=== PATIENT | female | born 1995 | race Caucasian/White ===

== ENCOUNTER → 2017-03-05 | Outpatient (CLI) | payer BC ==
--- NOTE | 2017-03-05 12:37 | US ---
EXAMINATION: Transvaginal pelvic ultrasound HISTORY: Frequent menstruation COMPARISON: None TECHNIQUE: Grayscale, color Doppler, and spectral Doppler images obtained transvaginally. FINDINGS: The uterus is normal in size, contour, and echogenicity without a focal uterine mass. Ther e is an IUD noted within the endometrial stripe. In the endometrial stripe thickness is otherwise 3 mm. Both the left and right ovaries are normal in size, contour, and echogenicity containing multiple sm all follicles. No adnexal masses. Trace physiologic free fluid. IMPRESSION: 1. IUD within an otherwise unremarkable uterus.
== END ==
LOC: MW.US 09:08
PROVIDERS: ATTEND Nurse Practitioner Women's Health
DX: N92.1 Excessive and frequent menstruation with irregular cycle (principal); Z97.5 Presence of (intrauterine) contraceptive device
CPT/HCPCS: 76830; 76830-26

== ENCOUNTER → 2017-03-08 | Outpatient (CLI) | payer BC | LOC: MW.CHOBGYN 08:14 | PROVIDERS: ATTEND Nurse Practitioner Women's Health | DX: R39.9 Unspecified symptoms and signs involving the genitourinary system (principal); N39.0 Urinary tract infection, site not specified | CPT/HCPCS: 81001; 87086; 87088; 87186 ==

== ENCOUNTER 2017-09-08 10:35 | Emergency (ER) | payer OTHER ==
--- NOTE | 2017-09-08 10:57 | EDM.PDOC ---
ED HPI GENERAL MEDICAL PROBLEM - General Chief Complaint: ENT Problem Stated Complaint: COLD Time Seen by Provider: 09/08/17 10:40 Source of Information: Reports: Patient History Limitations: Reports: No Limitations - History of Present Illness INITIAL COMMENTS - FREE TEXT/NARRATIVE: History of present illness: [22-year-old female comes in complaining of sore throat, excessive mucus discharge of a cold and brown in color. Patient indicates there has been illness in the house for almost a month break from one person to another and she feels her cold is turning into something more now.] Review of systems: As per history of present illness and below otherwise all systems reviewed and negative. Past medical history: As per history of present illness and as reviewed below otherwise noncontributory. Surgical history: As per history of present illness and as reviewed below otherwise noncontributory. Social history: No reported history of drug or alcohol abuse. Family history: As per history of present illness and as reviewed below otherwise noncontributory. Physical exam: HEENT: Atraumatic, normocephalic, pupils reactive, negative for conjunctival pallor or scleral icterus, mucous membranes moist with oropharyngeal erythema with verónica mucus drainage, nares median red with boggy turbinates with generalized tenderness over the frontal sinuses and maxillary sinuses, neck supple, nontender, trachea midline. Lungs: Clear to auscultation, breath sounds equal bilaterally, chest nontender. Heart: S1S2, regular, negative for clicks, rubs, or JVD. Abdomen: Soft, nondistended, nontender. Negative for masses or hepatosplenomegaly. Negative for costovertebral tenderness. Pelvis: Stable nontender. Genitourinary: Deferred. Rectal: Deferred. Extremities: Atraumatic, negative for cords or calf pain. Neurovascular unremarkable. Neuro: Awake, alert, oriented. Cranial nerves II through XII unremarkable. Cerebellum unremarkable. Motor and sensory unremarkable throughout. Exam nonfocal. Diagnostics: [] Therapeutics: [] Impression: [#1 pharyngitis #2 sinusitis #3 allergic rhinitis] Plan: [azithromycin, OTC antihistamine] Definitive disposition and diagnosis as appropriate pending reevaluation and review of above. 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 Musculoskeletal History: Reports: None Neurological History: Reports: None Psychiatric History: Reports: None Endocrine/Metabolic History: Reports: None Dermatologic History: Reports: None - Infectious Disease History Infectious Disease History: Reports: Chicken Pox - Past Surgical History HEENT Surgical History: Reports: None Social & Family History - Family History Family Medical History: Noncontributory - Tobacco Use Smoking Status *Q: Never Smoker Second Hand Smoke Exposure: No - Recreational Drug Use Recreational Drug Use: No ED ROS GENERAL - Review of Systems Review Of Systems: See Below (History of present illness) ED EXAM, GENERAL - Physical Exam Exam: See Below (History of present illness) Course - Vital Signs Last Recorded V/S: Last Vital Signs Temp 36.7 C 09/08/17 10:35 Pulse 63 09/08/17 10:35 Resp 16 09/08/17 10:35 BP 129/72 09/08/17 10:35 Pulse Ox 97 09/08/17 10:35 Departure - Departure Time of Disposition: 10:56 Disposition: Home, Self-Care 01 Condition: Good Clinical Impression: Pharyngitis, Allergic rhinitis, Sinusitis - Discharge Information Prescriptions: Azithromycin [IJD: Azithromycin] 250 mg PO DAILY #6 tab Referrals: Boom Craig MD [Primary Care Provider] - Additional Instructions: The following information is given to patients seen in the emergency department who are being discharged to home. This information is to outline your options for follow-up care. We provide all patients seen in our emergency department with a follow-up referral. The need for follow-up, as well as the timing and circumstances, are variable depending upon the specifics of your emergency department visit. If you don't have a primary care physician on staff, we will provide you with a referral. We always advise you to contact your personal physician following an emergency department visit to inform them of the circumstance of the visit and for follow-up with them and/or the need for any referrals to a consulting specialist. The emergency department will also refer you to a specialist when appropriate. This referral assures that you have the opportunity for follow-up care with a specialist. All of these measure are taken in an effort to provide you with optimal care, which includes your follow-up. Under all circumstances we always encourage you to contact your private physician who remains a resource for coordinating your care. When calling for follow-up care, please make the office aware that this follow-up is from your recent emergency room visit. If for any reason you are refused follow-up, please contact the [facility] Emergency Department at and asked to speak to the emergency department charge nurse. Take medication as directed Follow-up with PCP 1-2 days Return to ED as needed as discussed
[2017-09-08 11:16] VITALS: BP 120/68
== END 2017-09-08 11:10 | disposition home or self-care (01) ==
LOC: MW.ED 10:35
DX: J02.9 Acute pharyngitis, unspecified (principal); J32.9 Chronic sinusitis, unspecified; J30.9 Allergic rhinitis, unspecified; Z88.2 Allergy status to sulfonamides; Z79.899 Other long term (current) drug therapy
CPT/HCPCS: 99282; 99283

== ENCOUNTER 2018-03-25 20:27 | Emergency (ER) | payer BC, OTHER ==
[2018-03-26 06:54] VITALS: BP 118/72
== END 2018-03-25 21:00 | disposition home or self-care (01) ==
LOC: MW.ED 20:27
DX: L73.9 Follicular disorder, unspecified (principal)
CPT/HCPCS: 99282

== ENCOUNTER 2018-05-14 14:01 | Emergency (ER) | payer BC ==
[2018-05-14] MEDS ORDERED: Sodium Chloride 0.9% 1,000 ML IV ONE (14:08)
[2018-05-14] MEDS ORDERED: Ketorolac 30 MG/ML SDV IVPUSH ONE (14:08)
--- NOTE | 2018-05-14 14:09 | EDM.PDOC ---
ED HPI GENERAL MEDICAL PROBLEM - General Chief Complaint: Abdominal Pain Stated Complaint: ABDOMINAL PAIN Time Seen by Provider: 05/14/18 14:08 Source of Information: Reports: Patient History Limitations: Reports: No Limitations - History of Present Illness INITIAL COMMENTS - FREE TEXT/NARRATIVE: HISTORY AND PHYSICAL: History of present illness: Patient is a 22-year-old female who presents to the emergency room today with complaints of generalized abdominal pain for the past week. She states she was seen in the clinic on Sunday and did have labs drawn and is scheduled to have an outpatient CT of the abdomen and pelvis on Sunday. She presents to the emergency room today as she states the pain is becoming worse. She denies any fever, chills, chest pain or shortness of breath. She denies any dysuria, nausea , vomiting, diarrhea or constipation. Eyes any vaginal bleeding or discharge. She currently has an IUD and declines any chance of . Review of systems: As per history of present illness and below otherwise all systems reviewed and negative. Past medical history: As per history of present illness and as reviewed below otherwise noncontributory. Surgical history: As per history of present illness and as reviewed below otherwise noncontributory. Social history: No reported history of drug or alcohol abuse. Family history: As per history of present illness and as reviewed below otherwise noncontributory. Physical exam: General: Well-developed and well-nourished 22-year-old female. Alert and oriented. Nontoxic appearing and in no acute distress. HEENT: Atraumatic, normocephalic, pupils equal and reactive bilaterally, negative for conjunctival pallor or scleral icterus, mucous membranes moist, throat clear, neck supple, nontender, trachea midline. No drooling or trismus noted. No meningeal signs Lungs: Clear to auscultation, breath sounds equal bilaterally, chest nontender. Heart: S1S2, regular rate and rhythm without overt murmur Abdomen: Soft, nondistended, left upper quadrant tenderness with palpation. Negative for masses or hepatosplenomegaly. Negative for costovertebral tenderness. Pelvis: Stable nontender. Genitourinary: Deferred. Rectal: Deferred. Skin: Intact, warm, dry. No lesions or rashes noted. Extremities: Atraumatic, negative for cords or calf pain. Neurovascular unremarkable. Neuro: Awake, alert, oriented. Cranial nerves II through XII unremarkable. Cerebellum unremarkable. Motor and sensory unremarkable throughout. Exam nonfocal. Notes: 05/10/2018: Patient states that she was being worked up for appendicitis and she does not have any right lower quadrant tenderness with palpation nor rebound tenderness. Reviewing her lab results from this visit she has a normal CBC, CMP , Lipase, UA and negative . Today she describes the discomfort as a generalized ache throughout all 4 quadrants. Does have left upper quadrant tenderness with palpation. She was offered to give her IV Toradol which at this time she would like to "hold on it" as she is good with pain". Lab work is unremarkable. CT of the abdomen and pelvis shows pre-portal edema and Precose cystic fluid noted. Nonspecific however it is not limited to cholangitis or viral hepatitis. Patient is not ill appearing she, is afebrile, and has no white count. I will order a hepatitis panel. I did inform the patient that we cannot rule out gallstones. She declines wanting to do an ultrasound at this time. Dr. Hernandez was consult on this case and he agrees with my thought/care plan. Patient will follow up with her primary care provider for outpatient ultrasound and/or HIDA scan if her pain continues. Tramadol No. 15, no refill. Patient is agreeable to plan of care. She denies any further questions at this time. Diagnostics: CBC, CMP, amylase, lipase, UA, urine CT abdomen and pelvis Therapeutics: IV fluid, Toradol Impression: Abdominal pain Plan: 1. As we discussed please monitor your diet. 2. Tylenol and/or ibuprofen as needed for pain management. Tramadol has been prescribed for moderate to severe pain. This medication may cause drowsiness so do not take it while driving or needing to be functioning outside of the house. 3. As we discussed please follow-up with your primary care provider in the next couple days. You may want a gallbladder ultrasound/HIDA scan for further evaluation if we suspect this is her gallbladder. Return to the ED as needed and as discussed. Definitive disposition and diagnosis as appropriate pending reevaluation and review of above. 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 ED EXAM, GI/ABD - Physical Exam Exam: See Below (See dictation) Course - Vital Signs Last Recorded V/S: Last Vital Signs Temp 97.6 F 05/14/18 14:29 Pulse 87 05/14/18 14:29 Resp 18 05/14/18 14:29 BP 130/84 05/14/18 14:29 Pulse Ox 100 05/14/18 14:29 - Orders/Labs/Meds Orders: Active Orders 24 hr Category Date Time Status HEP C VIRUS AB [REF] Stat Lab 05/14/18 16:24 Ordered HEPATITIS B SURF AB QUANT [REF] Stat Lab 05/14/18 16:24 Ordered UA W/MICROSCOPIC [URIN] Stat Lab 05/14/18 14:08 Ordered Labs: Laboratory Tests 05/14/18 05/14/18 05/14/18 Range/Units 14:25 14:25 14:25 WBC 4.71 (4.0-11.0) K/uL RBC 4.45 (4.30-5.90) M/uL Hgb 13.8 (12.0-16.0) g/dL Hct 39.6 (36.0-46.0) % MCV 89.0 (80.0-98.0) fL MCH 31.0 (27.0-32.0) pg MCHC 34.8 (31.0-37.0) g/dL RDW Std Deviation 39.8 (28.0-62.0) fl RDW Coeff of Kristine 12 (11.0-15.0) % Plt Count 209 (150-400) K/uL MPV 9.90 (7.40-12.00) fL Neut % (Auto) 61.4 (48.0-80.0) % Lymph % (Auto) 28.5 (16.0-40.0) % [place] % (Auto) 7.6 (0.0-15.0) % Eos % (Auto) 1.9 (0.0-7.0) % Baso % (Auto) 0.6 (0.0-1.5) % Neut # (Auto) 2.9 (1.4-5.7) K/uL Lymph # (Auto) 1.3 (0.6-2.4) K/uL [place] # (Auto) 0.4 (0.0-0.8) K/uL Eos # (Auto) 0.1 (0.0-0.7) K/uL Baso # (Auto) 0.0 (0.0-0.1) K/uL Nucleated RBC % 0.0 /100WBC Nucleated RBCs # 0 K/uL Sodium 141 (136-145) mmol/L Potassium 3.7 (3.5-5.1) mmol/L Chloride 106 (98-107) mmol/L Carbon Dioxide 27.0 (21.0-32.0) mmol/L BUN 9 (7.0-18.0) mg/dL Creatinine 0.8 (0.6-1.0) mg/dL Est Cr Clr Drug Dosing 86.50 mL/min Estimated GFR (MDRD) > 60.0 ml/min Glucose 91 (74-106) mg/dL Calcium 9.8 (8.5-10.1) mg/dL Total Bilirubin 0.3 (0.2-1.0) mg/dL AST 29 (15-37) IU/L ALT 39 (14-63) IU/L Alkaline Phosphatase 59 (46-116) U/L Total Protein 7.5 (6.4-8.2) g/dL Albumin 4.0 (3.4-5.0) g/dL Globulin 3.5 (2.0-3.5) g/dL Albumin/Globulin Ratio 1.1 L (1.3-2.8) Amylase 60 (25-115) U/L Lipase 153 (73-393) U/L Meds: Medications Discontinued Medications Generic Name Dose Route Start Last Admin Trade Name Fermin PRN Reason Stop Dose Admin Sodium Chloride 1,000 mls @ 999 mls/hr 05/14/18 14:08 05/14/18 14:40 Normal Saline IV 05/14/18 15:08 999 mls/hr STAT ONE Administration Iopamidol 70 ml 05/14/18 15:48 05/14/18 15:49 Isovue Multipack-370 (76%) IVPUSH 05/14/18 15:49 70 ml ONETIME ONE Administration Ketorolac Tromethamine 30 mg 05/14/18 14:08 Toradol IVPUSH 05/14/18 14:09 ONETIME ONE Departure - Departure Time of Disposition: 16:29 Disposition: Home, Self-Care 01 Clinical Impression: Abdominal pain Qualifiers: Abdominal location: generalized Qualified Code(s): R10.84 - Generalized abdominal pain - Discharge Information Instructions: Abdominal Pain, Adult Referrals: Boom Craig MD [Primary Care Provider] - Forms: ED Department Discharge Additional Instructions: The following information is given to patients seen in the emergency department who are being discharged to home. This information is to outline your options for follow-up care. We provide all patients seen in our emergency department with a follow-up referral. The need for follow-up, as well as the timing and circumstances, are variable depending upon the specifics of your emergency department visit. If you don't have a primary care physician on staff, we will provide you with a referral. We always advise you to contact your personal physician following an emergency department visit to inform them of the circumstance of the visit and for follow-up with them and/or the need for any referrals to a consulting specialist. The emergency department will also refer you to a specialist when appropriate. This referral assures that you have the opportunity for follow-up care with a specialist. All of these measure are taken in an effort to provide you with optimal care, which includes your follow-up. Under all circumstances we always encourage you to contact your private physician who remains a resource for coordinating your care. When calling for follow-up care, please make the office aware that this follow-up is from your recent emergency room visit. If for any reason you are refused follow-up, please contact the [facility] Emergency Department at and asked to speak to the emergency department charge nurse. [facility] [id number], [place] [address] 1. As we discussed please monitor your diet. 2. Tylenol and/or ibuprofen as needed for pain management. Tramadol has been prescribed for moderate to severe pain. This medication may cause drowsiness so do not take it while driving or needing to be functioning outside of the house. 3. As we discussed please follow-up with your primary care provider in the next couple days. You may want a gallbladder ultrasound/HIDA scan for further evaluation if we suspect this is her gallbladder. Return to the ED as needed and as discussed. - My Orders Last 24 Hours: My Active Orders 05/14/18 14:08 UA W/MICROSCOPIC [URIN] Stat 05/14/18 16:24 HEP C VIRUS AB [REF] Stat HEPATITIS B SURF AB QUANT [REF] Stat - Assessment/Plan Last 24 Hours: My Active Orders 05/14/18 14:08 UA W/MICROSCOPIC [URIN] Stat 05/14/18 16:24 HEP C VIRUS AB [REF] Stat HEPATITIS B SURF AB QUANT [REF] Stat
[2018-05-14 15:10] LABS: CHLORIDE,CL 106 mmol/L (98-107); SODIUM,NA 141 mmol/L (136-145)
[2018-05-14] MEDS ORDERED: Iopamidol 755 MG/ML 500 ML Multipack Bottle IVPUSH ONE (15:48)
--- NOTE | 2018-05-14 15:59 | CT ---
CT of the abdomen and pelvis with contrast. HISTORY: Pain TECHNIQUE: Axial CT images were obtained of the abdomen and pelvis following administration of 70 mL of Isovue-370 without complication. Coronal and sagittal reconstructions obtained. FINDINGS: The lung bases are clear, no pleural effusion. There is mild periportal edema noted in the small amount of pericholecystic fluid also demonstrated. The liver otherwise appears normal. The spleen, adrenal glands, pancreas appear unremarkable. There i s no bulky retroperitoneal lymphadenopathy or abdominal ascites. The kidneys enhance and function symmetrically without evidence of obstructive uropathy. The large and small bowel are normal in caliber without evidence of obstruction. No focal pericolonic inflammation or stranding. The appendix appears normal. There is an IUD within the uterus. No bulky pelvic lymphadenopathy. Trace free pelvic fluid likely physiologic. Urinary bladder is normal. No suspicious osseous abnormalities identified. IMPRESSION: 1. Periportal edema and pericholecystic fluid is noted. Nonspecific however can be seen with, however not limited to, cholangitis or viral hepatitis.
[2018-05-14 16:48] VITALS: BP 120/63
== END 2018-05-14 16:44 | disposition home or self-care (01) ==
LOC: MW.ED 14:01
DX: R10.84 Generalized abdominal pain (principal); Z88.2 Allergy status to sulfonamides; Z79.899 Other long term (current) drug therapy
CPT/HCPCS: 36415; 74177; 80053; 82150; 83690; 85025; 86706; 86803; 96360; 99284; J7040; Q9967

== ENCOUNTER 2018-05-23 02:53 | Emergency (ER) | payer BC ==
--- NOTE | 2018-05-23 02:57 | EDM.PDOC ---
ED HPI GENERAL MEDICAL PROBLEM - General Stated Complaint: EXTREME THROAT PAIN Time Seen by Provider: 05/23/18 02:56 Source of Information: Reports: Patient History Limitations: Reports: No Limitations - History of Present Illness INITIAL COMMENTS - FREE TEXT/NARRATIVE: HISTORY AND PHYSICAL: History of present illness: 22-year-old female presenting emergency department with chief complaint of sore throat 4 days and dysuria 4 days. Patient states 4 days ago she began having a sore throat. She states that she does have seasonal allergies but her throat has been significantly worse. She denies any associated fever, cough, nausea, vomiting. Does state that she has had some dysuria, urgency, and hematuria. She has had urinary tract infections in the past and this is similar. She also admits to having a kidney infection in the past but she was much sicker that time. She denies any CVA tenderness. Currently denies any chest pain, palpitations, shortness of breath, syncopal episodes, or focal neurologic deficits. Review of systems: As per history of present illness and below otherwise all systems reviewed and negative. Past medical history: As per history of present illness and as reviewed below otherwise noncontributory. Surgical history: As per history of present illness and as reviewed below otherwise noncontributory. Social history: No reported history of drug or alcohol abuse. Family history: As per history of present illness and as reviewed below otherwise noncontributory. Physical exam: HEENT: Atraumatic, normocephalic, pupils reactive, negative for conjunctival pallor or scleral icterus, mucous membranes moist, throat erythema with enlarged tonsils non kissing without exudate, neck supple, submandibular and anterior lymphadenopathy, trachea midline. Lungs: Clear to auscultation, breath sounds equal bilaterally, chest nontender. Heart: S1S2, regular, negative for clicks, rubs, or JVD. Abdomen: Soft, nondistended, nontender. Negative for masses or hepatosplenomegaly. Negative for costovertebral tenderness. Pelvis: Stable nontender. Genitourinary: Deferred. Rectal: Deferred. Extremities: Atraumatic, negative for cords or calf pain. Neurovascular unremarkable. Neuro: Awake, alert, oriented. Cranial nerves II through XII unremarkable. Cerebellum unremarkable. Motor and sensory unremarkable throughout. Exam nonfocal. Diagnostics: Rapid strep, UA/UC Therapeutics: [] Impression: Acute cystitis Plan: Rapid strep was negative but urinalysis was positive for acute cystitis. Will treat with ciprofloxacin secondary to the patient's history of UTIs as well as kidney infections. Patient was given a prescription for ciprofloxacin 500 mg by mouth twice a day 7 days. She was instructed to return to emergency department if she had any new or worse symptoms and follow-up with her primary care provider. Definitive disposition and diagnosis as appropriate pending reevaluation and review of above. 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 Musculoskeletal History: Reports: None Neurological History: Reports: None Psychiatric History: Reports: None Endocrine/Metabolic History: Reports: None Hematologic History: Reports: None Immunologic History: Reports: None Oncologic (Cancer) History: Reports: None Dermatologic History: Reports: None - Infectious Disease History Infectious Disease History: Reports: Chicken Pox - Past Surgical History HEENT Surgical History: Reports: None Social & Family History - Family History Family Medical History: Noncontributory - Caffeine Use Caffeine Use: Reports: Tea ED ROS GENERAL - Review of Systems Review Of Systems: ROS reveals no pertinent complaints other than HPI. ED EXAM, GENERAL - Physical Exam Exam: See Below Course - Vital Signs Last Recorded V/S: Last Vital Signs Temp 97.6 F 05/23/18 03:09 Pulse 93 05/23/18 03:09 Resp 14 05/23/18 03:09 BP 105/61 05/23/18 03:09 Pulse Ox 100 05/23/18 03:09 - Orders/Labs/Meds Orders: Active Orders 24 hr Category Date Time Status CULTURE STREP A CONFIRMATION [RM] Stat Lab 05/23/18 03:00 Results CULTURE URINE [] Stat Lab 05/23/18 03:02 Ordered STREP SCRN A RAPID W CULT CONF [RM] Stat Lab 05/23/18 03:00 Ordered UA W/MICROSCOPIC [URIN] Stat Lab 05/23/18 03:02 Ordered Labs: Laboratory Tests 05/23/18 Range/Units 03:02 Urine Color YELLOW Urine Appearance SLT CLOUDY Urine pH 6.0 (5.0-8.0) Ur Specific [place] 1.025 (1.001-1.035) Urine Protein NEGATIVE (NEGATIVE) mg/dL Urine Glucose (UA) NEGATIVE (NEGATIVE) mg/dL Urine Ketones NEGATIVE (NEGATIVE) mg/dL Urine Occult Blood TRACE-LYSED (NEGATIVE) Urine Nitrite NEGATIVE (NEGATIVE) Urine Bilirubin NEGATIVE (NEGATIVE) Urine Urobilinogen 0.2 (<2.0) EU/dL Ur Leukocyte Esterase TRACE (NEGATIVE) Urine RBC 0-1 (0-2/HPF) Urine WBC 13-17 (0-5/HPF) Ur Epithelial Cells FEW (NONE-FEW) Urine Bacteria 1+ H (NEGATIVE) Urine Mucus LIGHT (NONE-MOD) Departure - Departure Time of Disposition: 03:37 Disposition: Home, Self-Care 01 Condition: Good Clinical Impression: Acute cystitis Qualifiers: Hematuria presence: with hematuria Qualified Code(s): N30.01 - Acute cystitis with hematuria Acute pharyngitis Qualifiers: Pharyngitis/tonsillitis etiology: unspecified etiology Qualified Code(s): J02.9 - Acute pharyngitis, unspecified - Discharge Information Referrals: Boom Craig MD [Primary Care Provider] - Additional Instructions: My general discharge The following information is given to patients seen in the emergency department who are being discharged to home. This information is to outline your options for follow-up care. We provide all patients seen in our emergency department with a follow-up referral. The need for follow-up, as well as the timing and circumstances, are variable depending upon the specifics of your emergency department visit. If you don't have a primary care physician on staff, we will provide you with a referral. We always advise you to contact your personal physician following an emergency department visit to inform them of the circumstance of the visit and for follow-up with them and/or the need for any referrals to a consulting specialist. The emergency department will also refer you to a specialist when appropriate. This referral assures that you have the opportunity for follow-up care with a specialist. All of these measure are taken in an effort to provide you with optimal care, which includes your follow-up. Under all circumstances we always encourage you to contact your private physician who remains a resource for coordinating your care. When calling for follow-up care, please make the office aware that this follow-up is from your recent emergency room visit. If for any reason you are refused follow-up, please contact the [facility] Emergency Department at and asked to speak to the emergency department charge nurse. [facility] [address] [place] [id number] Take antibiotics as prescribed. Follow-up with your primary care provider Dr. Craig. Return emergency department if any new or worsening symptoms. - My Orders Last 24 Hours: My Active Orders 05/23/18 03:00 CULTURE STREP A CONFIRMATION [RM] Stat STREP SCRN A RAPID W CULT CONF [RM] Stat 05/23/18 03:02 CULTURE URINE [] Stat UA W/MICROSCOPIC [URIN] Stat - Assessment/Plan Last 24 Hours: My Active Orders 05/23/18 03:00 CULTURE STREP A CONFIRMATION [RM] Stat STREP SCRN A RAPID W CULT CONF [RM] Stat 05/23/18 03:02 CULTURE URINE [RM] Stat UA W/MICROSCOPIC [URIN] Stat
[2018-05-23 03:48] VITALS: BP 111/62
== END 2018-05-23 03:45 | disposition home or self-care (01) ==
LOC: MW.ED 02:53
DX: N30.01 Acute cystitis with hematuria (principal); J02.9 Acute pharyngitis, unspecified; Z88.2 Allergy status to sulfonamides; Z79.899 Other long term (current) drug therapy
CPT/HCPCS: 81001; 87081; 87086; 87088; 87186; 87880-QW; 99283

== ENCOUNTER 2019-06-12 16:40 | Emergency (ER) | payer BC ==
[2019-06-12 16:47] VITALS: BP 109/73
--- NOTE | 2019-06-12 16:54 | EDM.PDOC ---
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 Time Seen by Provider: 06/12/19 16:45 - History of Present Illness INITIAL COMMENTS - FREE TEXT/NARRATIVE: HISTORY AND PHYSICAL: History of present illness: Patient's 23-year-old white female presents 12 weeks with lower abdominal pain there's been no fever chills nausea vomiting vaginal discharge bleeding trauma or other concern she states she has had a ultrasound demonstrated intrauterine . Review of systems: As per history of present illness and below otherwise all systems reviewed and negative. Past medical history: As per history of present illness and as reviewed below otherwise noncontributory. Surgical history: As per history of present illness and as reviewed below otherwise noncontributory. Social history: No reported history of drug or alcohol abuse. Family history: As per history of present illness and as reviewed below otherwise noncontributory. Physical exam: HEENT: Atraumatic, normocephalic, pupils reactive, negative for conjunctival pallor or scleral icterus, mucous membranes moist, throat clear, neck supple, nontender, trachea midline. Lungs: Clear to auscultation, breath sounds equal bilaterally, chest nontender. Heart: S1S2, regular, negative for clicks, rubs, or JVD. Abdomen: Soft, nondistended, no localized tenderness no rebound or guarding. Negative for masses or hepatosplenomegaly. Negative for costovertebral tenderness. Pelvis: Stable nontender. Genitourinary: Deferred. Rectal: Deferred. Extremities: Atraumatic, negative for cords or calf pain. Neurovascular unremarkable. Neuro: Awake, alert, oriented. Cranial nerves II through XII unremarkable. Cerebellum unremarkable. Motor and sensory unremarkable throughout. Exam nonfocal. Diagnostics: CBC CMP UA Therapeutics: None Impression: #1 history of 12 week intrauterine #2 abdominal pain #3 threatened miscarriage Definitive disposition and diagnosis as appropriate pending reevaluation and review of above. lower abdomen Pain Score (Numeric/FACES): 7 - Related Data Allergies Allergy/AdvReac Type Severity Reaction Status Date / Time Sulfa (Sulfonamide Allergy Mild Rash Verified 06/12/19 16:48 Antibiotics) Home Meds: Home Meds . 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 Musculoskeletal History: Reports: None Neurological History: Reports: None Psychiatric History: Reports: None Endocrine/Metabolic History: Reports: None Hematologic History: Reports: None Immunologic History: Reports: None Oncologic (Cancer) History: Reports: None Dermatologic History: Reports: None - Infectious Disease History Infectious Disease History: Reports: Chicken Pox - Past Surgical History HEENT Surgical History: Reports: None Social & Family History - Family History Family Medical History: Noncontributory - Caffeine Use Caffeine Use: Reports: Tea ED ROS GENERAL - Review of Systems Review Of Systems: ROS reveals no pertinent complaints other than HPI. ED EXAM, GENERAL - Physical Exam Exam: See Below (dictation) Course - Vital Signs Last Recorded V/S: Last Vital Signs Temp 36.1 C 06/12/19 16:45 Pulse 83 06/12/19 16:45 Resp 18 06/12/19 16:45 BP 109/73 06/12/19 16:45 Pulse Ox 99 06/12/19 16:45 - Orders/Labs/Meds Orders: Active Orders 24 hr Category Date Time Status COMPREHENSIVE METABOLIC PN,CMP [CHEM] Stat Lab 06/12/19 17:06 Received Labs: Laboratory Tests 06/12/19 06/12/19 Range/Units 17:06 17:11 WBC 6.40 (4.0-11.0) K/uL RBC 4.35 (4.30-5.90) M/uL Hgb 13.4 (12.0-16.0) g/dL Hct 38.7 (36.0-46.0) % MCV 89.0 (80.0-98.0) fL MCH 30.8 (27.0-32.0) pg MCHC 34.6 (31.0-37.0) g/dL RDW Std Deviation 40.3 (28.0-62.0) fl RDW Coeff of Kristine 13 (11.0-15.0) % Plt Count 208 (150-400) K/uL MPV 10.00 (7.40-12.00) fL Neut % (Auto) 71.3 (48.0-80.0) % Lymph % (Auto) 20.6 (16.0-40.0) % [place] % (Auto) 6.3 (0.0-15.0) % Eos % (Auto) 1.3 (0.0-7.0) % Baso % (Auto) 0.5 (0.0-1.5) % Neut # (Auto) 4.6 (1.4-5.7) K/uL Lymph # (Auto) 1.3 (0.6-2.4) K/uL [place] # (Auto) 0.4 (0.0-0.8) K/uL Eos # (Auto) 0.1 (0.0-0.7) K/uL Baso # (Auto) 0.0 (0.0-0.1) K/uL Nucleated RBC % 0.0 /100WBC Nucleated RBCs # 0 K/uL Urine Color YELLOW Urine Appearance CLEAR Urine pH 6.0 (5.0-8.0) Ur Specific [place] 1.020 (1.001-1.035) Urine Protein NEGATIVE (NEGATIVE) mg/dL Urine Glucose (UA) NEGATIVE (NEGATIVE) mg/dL Urine Ketones TRACE H (NEGATIVE) mg/dL Urine Occult Blood TRACE-INTACT H (NEGATIVE) Urine Nitrite NEGATIVE (NEGATIVE) Urine Bilirubin NEGATIVE (NEGATIVE) Urine Urobilinogen 0.2 (<2.0) EU/dL Ur Leukocyte Esterase NEGATIVE (NEGATIVE) Urine RBC 0-2 (0-2/HPF) Urine WBC 1-3 (0-5/HPF) Ur Epithelial Cells FEW (NONE-FEW) Urine Bacteria 1+ H (NEGATIVE) Urine Mucus LIGHT (NONE-MOD) Departure - Departure Time of Disposition: 17:28 Disposition: Home, Self-Care 01 Condition: Good Clinical Impression: Threatened , Urinary tract infection - Discharge Information Referrals: PCP,Unknown [Primary Care Provider] - Forms: ED Department Discharge Additional Instructions: The following information is given to patients seen in the emergency department who are being discharged to home. This information is to outline your options for follow-up care. We provide all patients seen in our emergency department with a follow-up referral. The need for follow-up, as well as the timing and circumstances, are variable depending upon the specifics of your emergency department visit. If you don't have a primary care physician on staff, we will provide you with a referral. We always advise you to contact your personal physician following an emergency department visit to inform them of the circumstance of the visit and for follow-up with them and/or the need for any referrals to a consulting specialist. The emergency department will also refer you to a specialist when appropriate. This referral assures that you have the opportunity for followup care with a specialist. All of these measure are taken in an effort to provide you with optimal care, which includes your followup. Under all circumstances we always encourage you to contact your private physician who remains a resource for coordinating your care. When calling for followup care, please make the office aware that this follow-up is from your recent emergency room visit. If for any reason you are refused follow-up, please contact the [facility] emergency department at and asked to speak to the emergency department charge nurse. Keflex as prescribed follow-up with ASSET ACCOUNTANT as discussed return as needed as discussed - My Orders Last 24 Hours: My Active Orders 06/12/19 17:06 COMPREHENSIVE METABOLIC PN,CMP [CHEM] Stat - Assessment/Plan Last 24 Hours: My Active Orders 06/12/19 17:06 COMPREHENSIVE METABOLIC PN,CMP [CHEM] Stat
[2019-06-12 17:36] LABS: CHLORIDE,CL 105 mmol/L (98-107); SODIUM,NA 136 mmol/L (136-145)
== END 2019-06-12 17:36 | disposition home or self-care (01) ==
LOC: MW.ED 16:40
DX: O20.0 Threatened abortion (principal); O23.41 Unspecified infection of urinary tract in pregnancy, first trimester; Z88.2 Allergy status to sulfonamides; Z3A.12 12 weeks gestation of pregnancy
CPT/HCPCS: 36415; 80053; 81001; 85025; 99284

== ENCOUNTER 2019-12-04 05:38 | Inpatient (IN) | payer BC ==
[~2019-12-04 05:38] MED LIST: Citric Acid/Sodium Citrate Solution 30 ML Cup PO ONE; Oxytocin/0.9 % Sodium Chloride 30 UNIT/500 ML BAG IV SCH; Sodium Chloride 0.9% 10 ML SDV IV PRN; Sodium Chloride 0.9% 10 ML Syringe FLUSH PRN; Sodium Chloride 0.9% 2.5 ML Syringe FLUSH PRN
[2019-12-04] MEDS: Lactated Ringers 1,000 ML IV SCH ×3 (05:53→07:50)
[2019-12-04] MEDS ORDERED: Oxytocin 10 Units/1 ML SDV ONE (07:23)
[2019-12-04] MEDS ORDERED: Ondansetron 4 MG/2 ML SDV ONE (07:23)
[2019-12-04] MEDS ORDERED: Morphine PF 10 MG/10 ML SDV ONE (07:29)
[2019-12-04] MEDS ORDERED: Octyl 2-Cyanoacrylate 1 Tube ONE (07:35)
--- NOTE | 2019-12-04 07:51 | PCM.PREANE ---
Preanesthetic Assessment - Anesthesia/Transfusion/Family Hx Anesthesia History: Prior Anesthesia Without Reaction (oral surgery) Family History of Anesthesia Reaction: No Transfusion History: No Prior Transfusion(s) - Review of Systems General: No Symptoms Pulmonary: No Symptoms Cardiovascular: No Symptoms Gastrointestinal: No Symptoms Neurological: No Symptoms Other: Reports: None - Physical Assessment NPO Status Date: 12/03/19 NPO Status Time: 20:00 Height: 5 ft 2 in Weight: 67.585 kg ASA Class: 2 Mental Status: Alert & Oriented x3 Airway Class: Mallampati = 1 Dentition: Reports: Normal Dentition Thyro-Mental Finger Breadths: 3 ROM/Head Extension: Full Lungs: Clear to Auscultation, Normal Respiratory Effort Cardiovascular: Regular Rate, Regular Rhythm - Lab Values: Laboratory Last Values WBC 3.37 K/uL (4.0-11.0) L 12/03/19 09:54 RBC 4.30 M/uL (4.30-5.90) 12/03/19 09:54 Hgb 12.9 g/dL (12.0-16.0) 12/03/19 09:54 Hct 38.6 % (36.0-46.0) 12/03/19 09:54 MCV 89.8 fL (80.0-98.0) 12/03/19 09:54 MCH 30.0 pg (27.0-32.0) 12/03/19 09:54 MCHC 33.4 g/dL (31.0-37.0) 12/03/19 09:54 RDW Std Deviation 44.8 fl (28.0-62.0) 12/03/19 09:54 RDW Coeff of Kristine 14 % (11.0-15.0) 12/03/19 09:54 Plt Count 172 K/uL (150-400) 12/03/19 09:54 MPV 9.80 fL (7.40-12.00) 12/03/19 09:54 Nucleated RBC % 0.0 /100WBC 12/03/19 09:54 Nucleated RBCs # 0 K/uL 12/03/19 09:54 Blood Type O POSITIVE 12/03/19 09:54 Antibody Screen NEGATIVE 12/03/19 09:54 - Allergies Allergies/Adverse Reactions: Allergies Allergy/AdvReac Type Severity Reaction Status Date / Time Sulfa (Sulfonamide Allergy Mild Rash Verified 11/28/19 09:55 Antibiotics) - Acknowledgements Anesthesia Type Planned: Spinal (with general anesthesia as a back up plan) Pt an Appropriate Candidate for the Planned Anesthesia: Yes Alternatives and Risks of Anesthesia Discussed w Pt/Guardian: Yes Pt/Guardian Understands and Agrees with Anesthesia Plan: Yes Additional Comments: 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: Reports: Musculoskeletal History: Reports: None Neurological History: Reports: None Psychiatric History: Reports: None Endocrine/Metabolic History: Reports: None Hematologic History: Reports: None Immunologic History: Reports: None Oncologic (Cancer) History: Reports: None Dermatologic History: Reports: None - Infectious Disease History Infectious Disease History: Reports: Chicken Pox - Past Surgical History Head Surgeries/Procedures: Reports: None HEENT Surgical History: Reports: Oral Surgery Other HEENT Surgeries/Procedures: wisdom teeth extraction Cardiovascular Surgical History: Reports: None Respiratory Surgical History: Reports: None GI Surgical History: Reports: None Female Surgical History: Reports: None Endocrine Surgical History: Reports: None Neurological Surgical History: Reports: None Musculoskeletal Surgical History: Reports: None Oncologic Surgical History: Reports: None Dermatological Surgical History: Reports: None - SUBSTANCE USE Smoking Status *Q: Never Smoker Tobacco Use Within Last Twelve Months: No Second Hand Smoke Exposure: No Recreational Drug Use History: No - HOME MEDS Home Medications: Home Meds . [No Known Home Meds] 06/12/19 [History] - CURRENT (IN HOUSE) MEDS Current Meds: Current Medications Lactated Ringer's (Ringers, Lactated) 1,000 mls @ 500 mls/hr IV BOLUS JORGE Last Admin: 12/04/19 06:59 Dose: 999 mls/hr Oxytocin/Sodium Chloride (Oxytocin 30 Unit/500 Ml-Ns) 30 unit in 500 mls @ 250 mls/hr IV TITRATE JORGE Sodium Chloride (Saline Flush) 10 ml FLUSH ASDIRECTED PRN PRN Reason: Keep Vein Open Sodium Chloride (Saline Flush) 2.5 ml FLUSH ASDIRECTED PRN PRN Reason: Keep Vein Open Sodium Chloride (Normal Saline) 10 ml IV ASDIRECTED PRN PRN Reason: IV Use Discontinued Medications Citric Acid/Sodium Citrate (Bicitra Solution) 30 ml PO ONETIME ONE Stop: 12/03/19 09:14 Morphine Sulfate (Duramorph Pf) Confirm Administered Dose 10 mg .ROUTE .STK-MED ONE Stop: 12/04/19 07:30 Octyl Cyanoacrylate (Dermabond Advance) Confirm Administered Dose 1 applic .ROUTE .STK-MED ONE Stop: 12/04/19 07:36 Ondansetron HCl (Zofran) Confirm Administered Dose 4 mg .ROUTE .STK-MED ONE Stop: 12/04/19 07:24 Oxytocin (Pitocin) Confirm Administered Dose 20 unit .ROUTE .STK-MED ONE Stop: 12/04/19 07:24
--- NOTE | 2019-12-04 08:04 | PCM.LDHP ---
L&D History of Present Illness - General Date of Service: 12/04/19 Admit Problem/Dx: Patient Status Order with Admit Dx/Problem 12/03/19 09:14 Patient Status [ADT] Routine Admission Diagnosis/Problem Admission Diagnosis/Problem Source of Information: Patient History Limitations: Reports: No Limitations - History of Present Illness Improves with: Reports: None Worsens with: Reports: None Associated Symptoms: Reports: N - Related Data Allergies/Adverse Reactions: Allergies Allergy/AdvReac Type Severity Reaction Status Date / Time Sulfa (Sulfonamide Allergy Mild Rash Verified 11/28/19 09:55 Antibiotics) Home Medications: Home Meds . 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: Reports: Musculoskeletal History: Reports: None Neurological History: Reports: None Psychiatric History: Reports: None Endocrine/Metabolic History: Reports: None Hematologic History: Reports: None Immunologic History: Reports: None Oncologic (Cancer) History: Reports: None Dermatologic History: Reports: None - Infectious Disease History Infectious Disease History: Reports: Chicken Pox - Past Surgical History Head Surgeries/Procedures: Reports: None HEENT Surgical History: Reports: Oral Surgery Other HEENT Surgeries/Procedures: wisdom teeth extraction Cardiovascular Surgical History: Reports: None Respiratory Surgical History: Reports: None GI Surgical History: Reports: None Female Surgical History: Reports: None Endocrine Surgical History: Reports: None Neurological Surgical History: Reports: None Musculoskeletal Surgical History: Reports: None Oncologic Surgical History: Reports: None Dermatological Surgical History: Reports: None Social & Family History - Family History Family Medical History: Noncontributory - Tobacco Use Smoking Status *Q: Never Smoker Second Hand Smoke Exposure: No - Caffeine Use Caffeine Use: Reports: Tea - Recreational Drug Use Recreational Drug Use: No Drug Use in Last 12 Months: No H&P Review of Systems - Review of Systems: Review Of Systems: See Below General: Reports: No Symptoms HEENT: Reports: No Symptoms Pulmonary: Reports: No Symptoms Cardiovascular: Reports: No Symptoms Gastrointestinal: Reports: No Symptoms Genitourinary: Reports: No Symptoms Musculoskeletal: Reports: No Symptoms Skin: Reports: No Symptoms Psychiatric: Reports: No Symptoms Neurological: Reports: No Symptoms Hematologic/Lymphatic: Reports: No Symptoms Immunologic: Reports: No Symptoms L&D Exam - Exam Exam: See Below - Vital Signs Weight: 67.585 kg - OB Specific Fundal Height In cm: 38 Contraction Intensity: Mild Movement: Active Presentation: Vertex - Cole Score Cole Score Cervix Position: Anterior Cole Score Consistency: Soft Cole Score Effacement: 51-70% Cole Score Dilation: Closed Cole Score 's Station: -3 Cole Score Total: 6 - Exam General: Alert, Oriented HEENT: PERRLA, Conjunctiva Clear, EACs Clear, EOMI, Hearing Intact, Mucosa Moist & [place], Nares Patent, Normal Nasal Septum, Posterior Pharynx Clear, TMs Clear Neck: Supple, Trachea Midline Lungs: Clear to Auscultation, Normal Respiratory Effort Cardiovascular: Regular Rate, Regular Rhythm GI/Abdominal Exam: Normal Bowel Sounds, Soft, Non-Tender, No Organomegaly, No Distention, No Abnormal Bruit, No Mass, Pelvis Stable Rectal Exam: Normal Exam, Normal Rectal Tone Genitourinary: Normal external exam, Normal bimanual exam, Normal speculum exam Back Exam: Normal Inspection, Full Range of Motion Extremities: Normal Inspection, Normal Range of Motion, Non-Tender, No Pedal Edema, Normal Capillary Refill Skin: Warm, Dry, Intact Neurological: Cranial Nerves Intact, Reflexes Equal Bilateral Psychiatric: Alert, Normal Affect, Normal Mood - Patient Data Lab Results Last 24 hrs: Laboratory Results - last 24 hr 12/03/19 12/03/19 Range/Units 09:54 09:54 WBC 3.37 L (4.0-11.0) K/uL RBC 4.30 (4.30-5.90) M/uL Hgb 12.9 (12.0-16.0) g/dL Hct 38.6 (36.0-46.0) % MCV 89.8 (80.0-98.0) fL MCH 30.0 (27.0-32.0) pg MCHC 33.4 (31.0-37.0) g/dL RDW Std Deviation 44.8 (28.0-62.0) fl RDW Coeff of Kristine 14 (11.0-15.0) % Plt Count 172 (150-400) K/uL MPV 9.80 (7.40-12.00) fL Nucleated RBC % 0.0 /100WBC Nucleated RBCs # 0 K/uL Blood Type O POSITIVE Antibody Screen NEGATIVE Result Diagrams: 12/03/19 09:54 Problem List Initiated/Reviewed/Updated: Yes Orders Last 24hrs: Active Orders 24 hr Category Date Time Status Patient Status [ADT] Routine ADT 12/03/19 09:14 Active Procedure Site Prep Instruct [RC] ASDIRECTED Care 12/03/19 09:14 Active Up ad Pooja [RC] ASDIRECTED Care 12/03/19 09:14 Active Verify Patient Consent Obtain [RC] ASDIRECTED Care 12/03/19 09:14 Active Vital Signs [RC] PER UNIT ROUTINE Care 12/03/19 09:14 Active RPR (SYPHILIS SERO) W/ RFLX [REF] Routine Lab 12/03/19 09:54 Received Lactated Ringers [Ringers, Lactated] 1,000 ml Med 12/03/19 09:15 Active IV BOLUS Oxytocin/0.9 % Sodium Chloride [Oxytocin 30 Unit/500 ML Med 12/03/19 09:15 Active -NS] 30 unit in 500 ml IV TITRATE Sodium Chloride 0.9% [Normal Saline] Med 12/03/19 09:13 Active 10 ml IV ASDIRECTED PRN Sodium Chloride 0.9% [Saline Flush] Med 12/03/19 09:13 Active 10 ml FLUSH ASDIRECTED PRN Sodium Chloride 0.9% [Saline Flush] Med 12/03/19 09:13 Active 2.5 ml FLUSH ASDIRECTED PRN Peripheral IV Insertion Adult [OM.PC] Routine Oth 12/03/19 09:14 Ordered Schedule Procedure [COMM] Per Unit Routine Oth 12/03/19 09:14 Ordered Resuscitation Status Routine Resus Stat 12/03/19 09:13 Ordered Medication Orders Lactated Ringer's (Ringers, Lactated) 1,000 mls @ 500 mls/hr IV BOLUS JORGE Last Admin: 12/04/19 07:50 Dose: 999 mls/hr Infusion: 12/04/19 07:50 Dose: 999 mls/hr Admin: 12/04/19 06:59 Dose: 999 mls/hr Infusion: 12/04/19 06:54 Dose: 999 mls/hr Admin: 12/04/19 05:53 Dose: 999 mls/hr Oxytocin/Sodium Chloride (Oxytocin 30 Unit/500 Ml-Ns) 30 unit in 500 mls @ 250 mls/hr IV TITRATE JORGE Sodium Chloride (Saline Flush) 10 ml FLUSH ASDIRECTED PRN PRN Reason: Keep Vein Open Sodium Chloride (Saline Flush) 2.5 ml FLUSH ASDIRECTED PRN PRN Reason: Keep Vein Open Sodium Chloride (Normal Saline) 10 ml IV ASDIRECTED PRN PRN Reason: IV Use Assessment/Plan Comment:: IUP 37 wks marginal placenta previa admitted for elective C/section.
[2019-12-04] MEDS ORDERED: Phenylephrine/Normal Saline 100 MCG/ML 10 ML Syringe ONE (08:22)
[2019-12-04] MEDS ORDERED: ePHEDrine 50 MG/ML SDV ONE (08:22)
[2019-12-04] MEDS ORDERED: Sodium Chloride 0.9% 20 ML ONE (08:22)
[2019-12-04] MEDS ORDERED: Misoprostol 200 MCG Tab RECTAL PRN (08:52)
[2019-12-04] MEDS ORDERED: Methylergonovine 0.2 MG/1 ML Amp IM PRN (08:52)
[2019-12-04] MEDS ORDERED: Lanolin 100% Cream 7 GM Tube TOP PRN (08:52)
[2019-12-04] MEDS ORDERED: Ondansetron 4 MG/2 ML SDV IVPUSH PRN (08:52)
[2019-12-04] MEDS ORDERED: Tranexamic Acid 1,000 MG in Sodium Chloride 0.9% 100 ML IV PRN (08:52)
[2019-12-04] MEDS ORDERED: Bisacodyl 10 MG Supp RECTAL PRN (08:52)
[2019-12-04] MEDS ORDERED: diphenhydrAMINE 50 MG/ML SDV IVPUSH PRN (08:52)
[2019-12-04] MEDS ORDERED: Oxytocin 10 Units/1 ML SDV IM PRN (08:52)
[2019-12-04] MEDS ORDERED: Acetaminophen/oxyCODONE 325-5 MG Tab PO PRN (08:52)
--- NOTE | 2019-12-04 08:55 | PCM.OPNOTE ---
- General Post-Op/Procedure Note Date of Surgery/Procedure: 12/04/19 Operative Procedure(s): Primary C/section. Pre Op Diagnosis: [id number]. M previa. Post-Op Diagnosis: Same Anesthesia Technique: Spinal Primary Surgeon: Harjinder Quiroz EBL in mLs: 1,100 Complications: None Condition: Good
[2019-12-04] MEDS ORDERED: fentaNYL 100 MCG/2 ML SDV ONE (08:58)
[2019-12-04] MEDS ORDERED: Lactated Ringers 1,000 ML IV SCH (09:00)
[2019-12-04] MEDS: Ketorolac 30 MG/ML SDV IVPUSH SCH ×3 (09:45→20:45)
--- NOTE | 2019-12-04 10:00 | PCM.POSTAN ---
POST ANESTHESIA ASSESSMENT - MENTAL STATUS Mental Status: Alert, Oriented - VITAL SIGNS Vital Signs: Last Vital Signs Temp 36.9 C 12/04/19 09:16 Pulse 92 12/04/19 09:55 Resp 9 L 12/04/19 09:55 BP 105/59 L 12/04/19 09:55 Pulse Ox 100 12/04/19 09:55 - RESPIRATORY Respiratory Status: Respiratory Rate WNL, Airway Patent, O2 Saturation Stable - CARDIOVASCULAR CV Status: Pulse Rate WNL, Blood Pressure Stable - GASTROINTESTINAL GI Status: No Symptoms - PAIN Pain Score: 0 - POST OP HYDRATION Hydration Status: Adequate & Stable - OBSERVATIONS Free Text/Narrative:: No anesthesia problems
--- NOTE | 2019-12-04 12:12 | OR ---
SURGEON: Harjinder Quiroz MD DATE OF PROCEDURE: PREOPERATIVE DIAGNOSES: Intrauterine at 37 weeks, confirmed marginal placenta previa is covering os partially. POSTOPERATIVE DIAGNOSES: Intrauterine at 37 weeks, confirmed marginal placenta previa is covering os partially. OPERATION PERFORMED: Primary low-transverse section. PRIMARY SURGEON: Harjinder Quiroz MD. ATTENDANCE OFFICER: Whit Chiang. ANESTHESIA: Spinal. ESTIMATED BLOOD LOSS: 1100 mL. COMPLICATIONS: None. FINDINGS: Male fetus. score reported to be 8 and 9. Normal uterus, tubes, and ovaries. INDICATIONS FOR SURGERY: This patient is 24. She is para 2-0-0-2. She had marginal placenta previa partially covering the os confirmed by repeated ultrasound, the last one at 35 weeks. The patient admitted for elective repeat section. PROCEDURE IN DETAIL: The patient was brought to the OR, properly identified. After adequate level of spinal anesthesia, with a Phillips catheter in the bladder, the patient prepped and draped in sterile fashion as usual. Low transverse Pfannenstiel skin incision was done and the rectus fascia and Salome fascia were opened in direction of the incision. The 2 recti muscles were and peritoneal cavity was entered. Bladder flap was raised in the usual manner pushing the bladder away from the lower uterine segment. Low-transverse uterine incision was done. The placenta was marginal anterior and covering the os. I had to go through the placenta to enter the amniotic cavity and deliver the fetus. The fetus cried immediately. After clamping the cord, the fetus handed to the resuscitating team, and then the placenta was delivered manually and rather easily without any problem. Once this was done, then the repair of the lower uterine segment was done with 2-0 Vicryl continuous interlocking in 2 layers. Reperitonealization done with 3-0 Vicryl continuous and then the peritoneal cavity evacuated completely from all blood and blood clot and closed with 3-0 Vicryl continuous. The rectus fascia was closed with #1 PDS continuous, Salome fascia with 3-0 Vicryl continuous, and skin with 3-0 on a Marciano needle in a subcuticular fashion. Instrument and sponge count was correct. The patient tolerated the procedure well, went to recovery room in stable general condition. MANPREET / MODL /[id number]
[2019-12-04] MEDS: Docusate Sodium 100 MG Cap PO SCH ×2 (12:20→20:45)
[2019-12-04] MEDS: Acetaminophen/oxyCODONE 325-5 MG Tab PO PRN (13:27)
[2019-12-05] MEDS: Acetaminophen/oxyCODONE 325-5 MG Tab PO PRN ×3 (00:47→18:47)
[2019-12-05] MEDS: Ketorolac 30 MG/ML SDV IVPUSH SCH ×2 (02:50→09:06)
--- NOTE | 2019-12-05 07:15 | PCM48HPAN ---
Post Anesthesia Note - EVALUATION WITHIN 48HRS OF ANESTHETIC Vital Signs in Normal Range: Yes Patient Participated in Evaluation: Yes Respiratory Function Stable: Yes Airway Patent: Yes Cardiovascular Function Stable: Yes Hydration Status Stable: Yes Pain Control Satisfactory: Yes Nausea and Vomiting Control Satisfactory: Yes Mental Status Recovered: Yes Vital Signs: Last Vital Signs Temp 37.3 C 12/05/19 04:00 Pulse 91 12/04/19 18:48 Resp 18 12/05/19 05:00 BP 122/62 12/05/19 04:00 Pulse Ox 96 12/05/19 05:00
[2019-12-05] MEDS: Docusate Sodium 100 MG Cap PO SCH ×2 (09:06→20:59)
--- NOTE | 2019-12-05 09:15 | PCM.PNPP ---
- General Info Date of Service: 12/05/19 Functional Status: Reports: Pain Controlled - Review of Systems General: Reports: No Symptoms HEENT: Reports: No Symptoms Pulmonary: Reports: No Symptoms Cardiovascular: Reports: No Symptoms Gastrointestinal: Reports: No Symptoms Genitourinary: Reports: No Symptoms Musculoskeletal: Reports: No Symptoms Skin: Reports: No Symptoms Neurological: Reports: No Symptoms Psychiatric: Reports: No Symptoms - Patient Data Vital Signs - Most Recent: Last Vital Signs Temp 36.7 C 12/05/19 08:00 Pulse 95 12/05/19 08:00 Resp 18 12/05/19 08:00 BP 103/63 12/05/19 08:00 Pulse Ox 99 12/05/19 08:00 Weight - Most Recent: 67.585 kg I&O - Last 24 Hours: Intake & Output 12/04/19 12/05/19 12/05/19 22:59 06:59 14:59 Intake Total 1875 Output Total 4150 Balance -2275 Lab Results - Last 24 Hours: Laboratory Results - last 24 hr 12/05/19 Range/Units 05:38 Hgb 9.5 L (12.0-16.0) g/dL Hct 28.9 L (36.0-46.0) % Med Orders - Current: Current Medications Bisacodyl (Dulcolax) 10 mg RECTAL ONETIME PRN PRN Reason: Constipation Diphenhydramine HCl (Benadryl) 25 mg IVPUSH Q6H PRN PRN Reason: Itching or Nausea Docusate Sodium (Colace) 100 mg PO BID [facility] Last Admin: 12/05/19 09:06 Dose: 100 mg Emollient Ointment (Lansinoh Hpa) 0 gm TOP ASDIRECTED PRN PRN Reason: Sore Nipples Lactated Ringer's (Ringers, Lactated) 1,000 mls @ 500 mls/hr IV BOLUS JORGE Last Admin: 12/04/19 07:50 Dose: 999 mls/hr Oxytocin/Sodium Chloride (Oxytocin 30 Unit/500 Ml-Ns) 30 unit in 500 mls @ 250 mls/hr IV TITRATE JORGE Tranexamic Acid 1,000 mg/ (Sodium Chloride) 110 mls @ 660 mls/hr IV ONETIME PRN PRN Reason: Bleeding Lactated Ringer's (Ringers, Lactated) 1,000 mls @ 125 mls/hr IV ASDIRECTED JORGE Last Admin: 12/04/19 12:19 Dose: 125 mls/hr Ibuprofen (Motrin) 800 mg PO Q8H PRN PRN Reason: mild pain or fever Methylergonovine Maleate (Methergine) 0.2 mg IM ONETIME PRN PRN Reason: Excessive Vaginal Bleeding Misoprostol (Cytotec) 1,000 mcg RECTAL ONETIME PRN PRN Reason: excessive bleeding Ondansetron HCl (Zofran) 4 mg IVPUSH Q4H PRN PRN Reason: Nausea/Vomiting Oxycodone/Acetaminophen (Percocet 325-5 Mg) 1 tab PO Q4H PRN PRN Reason: Pain (moderate 4-6) Last Admin: 12/05/19 00:47 Dose: 1 tab Oxycodone/Acetaminophen (Percocet 325-5 Mg) 2 tab PO Q4H PRN PRN Reason: Pain (moderate 4-6) Oxytocin (Pitocin) 10 unit IM ASDIRECTED PRN PRN Reason: Excessive Vaginal Bleeding Sodium Chloride (Saline Flush) 10 ml FLUSH ASDIRECTED PRN PRN Reason: Keep Vein Open Sodium Chloride (Saline Flush) 2.5 ml FLUSH ASDIRECTED PRN PRN Reason: Keep Vein Open Sodium Chloride (Normal Saline) 10 ml IV ASDIRECTED PRN PRN Reason: IV Use Discontinued Medications Citric Acid/Sodium Citrate (Bicitra Solution) 30 ml PO ONETIME ONE Stop: 12/03/19 09:14 Last Admin: 12/04/19 07:53 Dose: Not Given Ephedrine Sulfate (Ephedrine Sulfate) Confirm Administered Dose 50 mg .ROUTE .STK-MED ONE Stop: 12/04/19 08:23 Fentanyl (Sublimaze) Confirm Administered Dose 100 mcg .ROUTE .STK-MED ONE Stop: 12/04/19 08:59 Sodium Chloride (Normal Saline) Confirm Administered Dose 20 mls @ as directed .ROUTE .STK-MED ONE Stop: 12/04/19 08:23 Ketorolac Tromethamine (Toradol) 30 mg IVPUSH Q6H [facility] Stop: 12/05/19 09:01 Last Admin: 12/05/19 09:06 Dose: 30 mg Morphine Sulfate (Duramorph Pf) Confirm Administered Dose 10 mg .ROUTE .STK-MED ONE Stop: 12/04/19 07:30 Octyl Cyanoacrylate (Dermabond Advance) Confirm Administered Dose 1 applic .ROUTE .STK-MED ONE Stop: 12/04/19 07:36 Last Admin: 12/04/19 12:51 Dose: Not Given Ondansetron HCl (Zofran) Confirm Administered Dose 4 mg .ROUTE .STK-MED ONE Stop: 12/04/19 07:24 Oxytocin (Pitocin) Confirm Administered Dose 20 unit .ROUTE .STK-MED ONE Stop: 12/04/19 07:24 Phenylephrine HCl (Phenylephrine In Ns 100 Mcg/Ml) Confirm Administered Dose 1 mg .ROUTE .STK-MED ONE Stop: 12/04/19 08:23 - Interaction Disposition, : in Room with Family Infant Interaction: Holding Infant Infant Feeding: Attempted ; Nursed Fair/Poor Support Person: - Recovery Exam Fundal Tone: Firm Fundal Level: 1 Fingerbreadths Below Umbilicus Fundal Placement: Midline Lochia Amount: Scant Lochia Color: Rubra/Red Perineum Description: Intact, Minimal Bruising/Swelling Episiotomy/Laceration: None Bladder Status: Indwelling Catheter in Place Urinary Elimination: Indwelling Catheter - Exam General: Alert, Oriented HEENT: Pupils Equal Neck: Supple Lungs: Clear to Auscultation, Normal Respiratory Effort Cardiovascular: Regular Rate, Regular Rhythm GI/Abdominal Exam: Normal Bowel Sounds, Soft, Non-Tender, No Organomegaly, No Distention, No Abnormal Bruit, No Mass, Pelvis Stable Extremities: Normal Inspection, Normal Range of Motion, Non-Tender, No Pedal Edema, Normal Capillary Refill Skin: Warm, Dry, Intact Wound/Incisions: Healing Well Neurological: No New Focal Deficit Psy/Mental Status: Alert, Normal Affect, Normal Mood - Problem List Review Problem List Initiated/Reviewed/Updated: Yes - My Orders Last 24 Hours: My Active Orders 12/04/19 08:52 Patient Status [ADT] Routine Ambulate [RC] PER UNIT ROUTINE Communication Order [RC] PER UNIT ROUTINE Communication Order [RC] PER UNIT ROUTINE Communication Order [RC] Per Unit Routine May Shower [RC] ASDIRECTED RT Incentive Spirometry [RC] Q2HWA Acetaminophen/oxyCODONE [Percocet 325-5 MG] 1 tab PO Q4H PRN Acetaminophen/oxyCODONE [Percocet 325-5 MG] 2 tab PO Q4H PRN Ibuprofen [Motrin] 800 mg PO Q8H PRN Lanolin [Lansinoh HPA] See Dose Instructions TOP ASDIRECTED PRN Methylergonovine [Methergine] 0.2 mg IM ONETIME PRN Ondansetron [Zofran] 4 mg IVPUSH Q4H PRN Oxytocin [Pitocin] 10 unit IM ASDIRECTED PRN Tranexamic Acid [Cyklokapron] 1,000 mg Sodium Chloride 0.9% [Normal Saline] 100 ml IV ONETIME bisacodyL [Dulcolax] 10 mg RECTAL ONETIME PRN diphenhydrAMINE [Benadryl] 25 mg IVPUSH Q6H PRN miSOPROStoL [Cytotec] 1,000 mcg RECTAL ONETIME PRN Assess Lochia [WOMSER] Per Unit Routine Assess Uterine Involution [WOMSER] Per Unit Routine Breast Pump [WOMSER] Per Unit Routine Peripheral IV Discontinue [OM.PC] Routine Sequential Compression Device [OM.PC] Per Unit Routine 12/04/19 08:53 Antiembolic Devices [RC] PER UNIT ROUTINE 12/04/19 09:00 Docusate Sodium [Colace] 100 mg PO BID Lactated Ringers [Ringers, Lactated] 1,000 ml IV ASDIRECTED - Assessment Assessment:: Status post section postoperative day #1 the patient is doing well her lab work is stable ambulatory voiding without any problem on regular diet we will consider discharging her home in a.m. - Plan Plan:: IUP 37 wks marginal placenta previa admitted for elective C/section.
[2019-12-05] MEDS: Ibuprofen 800 MG Tab PO PRN (20:57)
[2019-12-06] MEDS: Acetaminophen/oxyCODONE 325-5 MG Tab PO PRN ×2 (07:44→13:12)
[2019-12-06] MEDS: Docusate Sodium 100 MG Cap PO SCH (08:47)
--- NOTE | 2019-12-06 09:22 | PCM.DCSUM1 ---
Discharge Summary - Hospital Course Diagnosis: Stroke: No - Discharge Data Discharge Date: 12/06/19 Discharge Disposition: Home, Self-Care 01 Condition: Good - Referral to Home Health Primary Care Physician: PCP None - Patient Summary/Data Operative Procedure(s) Performed: Primary C/section. - Patient Instructions Diet: Usual Diet as Tolerated Activity: As Tolerated Driving: Do Not Drive Showering/Bathing: May Shower Notify Provider of: Fever, Increased Pain, Swelling and Redness, Drainage, Nausea and/or Vomiting - Discharge Plan Home Medications: Home Meds . [No Known Home Meds] 06/12/19 [History] Referrals: [facility] [Outside] Harjinder Quiroz MD [Physician] - (1 week- December 15@1:30pm w/ Dr. Quiroz week- January 16@ 10:45am w/ Dr. Quiroz) - Discharge Summary/Plan Comment DC Time >30 min.: Yes - General Info Date of Service: 12/06/19 Functional Status: Reports: Pain Controlled - Review of Systems General: Reports: No Symptoms HEENT: Reports: No Symptoms Pulmonary: Reports: No Symptoms Cardiovascular: Reports: No Symptoms Gastrointestinal: Reports: No Symptoms Genitourinary: Reports: No Symptoms Musculoskeletal: Reports: No Symptoms Skin: Reports: No Symptoms Neurological: Reports: No Symptoms Psychiatric: Reports: No Symptoms - Patient Data Vitals - Most Recent: Last Vital Signs Temp 36.0 C 12/06/19 04:12 Pulse 74 12/06/19 04:12 Resp 18 12/06/19 04:12 BP 104/65 12/06/19 04:12 Pulse Ox 97 12/06/19 04:12 Weight - Most Recent: 67.585 kg I&O - Last 24 hours: Intake & Output 12/05/19 12/06/19 12/06/19 22:59 06:59 14:59 Output Total 1000 Balance -1000 Lab Results - Last 24 hrs: Laboratory Results - last 24 hr 12/03/19 Range/Units 09:54 RPR Non-Reac (Non-Reac) Med Orders - Current: Current Medications Bisacodyl (Dulcolax) 10 mg RECTAL ONETIME PRN PRN Reason: Constipation Diphenhydramine HCl (Benadryl) 25 mg IVPUSH Q6H PRN PRN Reason: Itching or Nausea Docusate Sodium (Colace) 100 mg PO BID [facility] Last Admin: 12/06/19 08:47 Dose: 100 mg Emollient Ointment (Lansinoh Hpa) 0 gm TOP ASDIRECTED PRN PRN Reason: Sore Nipples Lactated Ringer's (Ringers, Lactated) 1,000 mls @ 500 mls/hr IV BOLUS [facility] Last Admin: 12/04/19 07:50 Dose: 999 mls/hr Oxytocin/Sodium Chloride (Oxytocin 30 Unit/500 Ml-Ns) 30 unit in 500 mls @ 250 mls/hr IV TITRATE [facility] Tranexamic Acid 1,000 mg/ (Sodium Chloride) 110 mls @ 660 mls/hr IV ONETIME PRN PRN Reason: Bleeding Lactated Ringer's (Ringers, Lactated) 1,000 mls @ 125 mls/hr IV ASDIRECTED [facility] Last Admin: 12/04/19 12:19 Dose: 125 mls/hr Ibuprofen (Motrin) 800 mg PO Q8H PRN PRN Reason: mild pain or fever Last Admin: 12/05/19 20:57 Dose: 800 mg Methylergonovine Maleate (Methergine) 0.2 mg IM ONETIME PRN PRN Reason: Excessive Vaginal Bleeding Misoprostol (Cytotec) 1,000 mcg RECTAL ONETIME PRN PRN Reason: excessive bleeding Ondansetron HCl (Zofran) 4 mg IVPUSH Q4H PRN PRN Reason: Nausea/Vomiting Oxycodone/Acetaminophen (Percocet 325-5 Mg) 1 tab PO Q4H PRN PRN Reason: Pain (moderate 4-6) Last Admin: 12/06/19 07:44 Dose: 1 tab Oxycodone/Acetaminophen (Percocet 325-5 Mg) 2 tab PO Q4H PRN PRN Reason: Pain (moderate 4-6) Oxytocin (Pitocin) 10 unit IM ASDIRECTED PRN PRN Reason: Excessive Vaginal Bleeding Sodium Chloride (Saline Flush) 10 ml FLUSH ASDIRECTED PRN PRN Reason: Keep Vein Open Sodium Chloride (Saline Flush) 2.5 ml FLUSH ASDIRECTED PRN PRN Reason: Keep Vein Open Sodium Chloride (Normal Saline) 10 ml IV ASDIRECTED PRN PRN Reason: IV Use Discontinued Medications Citric Acid/Sodium Citrate (Bicitra Solution) 30 ml PO ONETIME ONE Stop: 12/03/19 09:14 Last Admin: 12/04/19 07:53 Dose: Not Given Ephedrine Sulfate (Ephedrine Sulfate) Confirm Administered Dose 50 mg .ROUTE .STK-MED ONE Stop: 12/04/19 08:23 Fentanyl (Sublimaze) Confirm Administered Dose 100 mcg .ROUTE .STK-MED ONE Stop: 12/04/19 08:59 Sodium Chloride (Normal Saline) Confirm Administered Dose 20 mls @ as directed .ROUTE .STK-MED ONE Stop: 12/04/19 08:23 Ketorolac Tromethamine (Toradol) 30 mg IVPUSH Q6H [facility] Stop: 12/05/19 09:01 Last Admin: 12/05/19 09:06 Dose: 30 mg Morphine Sulfate (Duramorph Pf) Confirm Administered Dose 10 mg .ROUTE .STK-MED ONE Stop: 12/04/19 07:30 Octyl Cyanoacrylate (Dermabond Advance) Confirm Administered Dose 1 applic .ROUTE .STEarlyDoc-MED ONE Stop: 12/04/19 07:36 Last Admin: 12/04/19 12:51 Dose: Not Given Ondansetron HCl (Zofran) Confirm Administered Dose 4 mg .ROUTE .STK-MED ONE Stop: 12/04/19 07:24 Oxytocin (Pitocin) Confirm Administered Dose 20 unit .ROUTE .STK-MED ONE Stop: 12/04/19 07:24 Phenylephrine HCl (Phenylephrine In Ns 100 Mcg/Ml) Confirm Administered Dose 1 mg .ROUTE .STK-MED ONE Stop: 12/04/19 08:23 - Exam General: Reports: Alert, Oriented HEENT: Reports: Pupils Equal, Pupils Reactive, EOMI, Mucous Membr. Moist/[place] Neck: Reports: Supple Lungs: Reports: Clear to Auscultation, Normal Respiratory Effort Cardiovascular: Reports: Regular Rate, Regular Rhythm GI/Abdominal Exam: Normal Bowel Sounds, Soft, Non-Tender, No Organomegaly, No Distention, No Abnormal Bruit, No Mass, Pelvis Stable (Female) Exam: Normal External Exam, Normal Speculum Exam, Normal Bimanual Exam Rectal (Female) Exam: Normal Exam, Normal Rectal Tone Back Exam: Reports: Normal Inspection, Full Range of Motion Extremities: Normal Inspection, Normal Range of Motion, Non-Tender, No Pedal Edema, Normal Capillary Refill Skin: Reports: Warm, Dry, Intact Wound/Incisions: Reports: Healing Well Neurological: Reports: No New Focal Deficit Psy/Mental Status: Reports: Alert, Normal Affect, Normal Mood
[2019-12-06] MEDS: Ibuprofen 800 MG Tab PO PRN (10:43)
[2019-12-06 13:55] VITALS: BP 116/57; PULSE 90
== END 2019-12-06 18:00 | disposition home or self-care (01) | DRG 540 ==
LOC: MW.OB 05:38
PROVIDERS: ADMIT Obstetrics & Gynecology; ATTEND Obstetrics & Gynecology
PROC: 10D00Z1 Extraction of Products of Conception, Low, Open Approach (ICD-10-PCS; principal; 2019-12-04)
DX: O44.23 Partial placenta previa NOS or without hemorrhage, third trimester (principal); Z3A.37 37 weeks gestation of pregnancy; Z37.0 Single live birth
CPT/HCPCS: 01961; 36415; 59025; 85014; 85018; 85027; 86592; 86850; 86900; 86901; A9270-GY; J1885; J2270; J2370; J2405; J2590; J3010; J7120

== ENCOUNTER 2019-12-09 17:09 | Emergency (ER) | payer BC ==
--- NOTE | 2019-12-09 18:31 | US ---
Left lower extremity deep venous ultrasound: Duplex and color Doppler evaluation left common femoral, superficial femoral, popliteal, anterior tibial and posterior tibial veins were obtained. Normal compression and augmentation is seen. Impression: 1. No evidence of deep venous thrombosis within the left lower extremity. Diagnostic code #1 This report was dictated in [place] Standard Time
--- NOTE | 2019-12-09 18:55 | EDM.PDOC ---
ED HPI GENERAL MEDICAL PROBLEM - General Chief Complaint: Lower Extremity Injury/Pain Stated Complaint: BLOOD CLOT Time Seen by Provider: 12/09/19 18:39 Source of Information: Reports: Patient History Limitations: Reports: No Limitations - History of Present Illness INITIAL COMMENTS - FREE TEXT/NARRATIVE: HISTORY AND PHYSICAL: History of present illness: Patient is a 24-year-old female who presents to the emergency room with complaints of left calf pain. Patient recently had a and was concerned she may have a blood clot in the left lower extremity. She states she had some sharp pain yesterday which continued into today. She called her OB provider who encouraged her to come in to have an ultrasound to rule out a DVT. She states her scar is healing well, breast-feeding without difficulties and offers no other complaints or concerns today. Patient denies any fever, chills, headache, change in vision, syncope or near syncope. Denies any chest pain, back pain, shortness of breath or cough. Denies any abdominal pain, nausea, vomiting, diarrhea, constipation or dysuria. Has not noted any blood in urine or stool. Patient has been eating and drinking appropriately. Review of systems: As per history of present illness and below otherwise all systems reviewed and negative. Past medical history: As per history of present illness and as reviewed below otherwise noncontributory. Surgical history: As per history of present illness and as reviewed below otherwise noncontributory. Social history: See social history for further information Family history: As per history of present illness and as reviewed below otherwise noncontributory. Physical exam: General: Well-developed and well-nourished 24-year-old female. Alert and oriented. Nontoxic-appearing and in no acute distress. HEENT: Atraumatic, normocephalic, pupils equal and reactive bilaterally, negative for conjunctival pallor or scleral icterus, mucous membranes moist, TMs normal bilaterally, throat clear, neck supple, nontender, trachea midline. No drooling or trismus noted. No meningeal signs. No hot potato voice noted. Lungs: Clear to auscultation, breath sounds equal bilaterally, chest nontender. Heart: S1S2, regular rate and rhythm without overt murmur Abdomen: Soft, nondistended, nontender. Negative for masses or hepatosplenomegaly. Negative for costovertebral tenderness. Pelvis: Stable nontender. Skin: site intact without erythema or any evidence of infection. Remaining skin is intact, warm, dry. No lesions or rashes noted. Extremities: Atraumatic, moves all extremities per self without difficulty or deficits, negative for cords or calf pain. No redness, soft tissue swelling or edema noted. Neurovascular unremarkable. Neuro: Awake, alert, oriented. Cranial nerves II through XII unremarkable. Cerebellum unremarkable. Motor and sensory unremarkable throughout. Exam nonfocal. Notes: My physical examination is within normal limits. Ultrasound shows no evidence of DVT. Lab work is unremarkable. Patient states she has been somewhat sedentary since her and taking care of the baby. Supportive care measures were reviewed and discussed. Voices understanding and is agreeable to plan of care. Denies any further questions or concerns at this time. Diagnostics: Venous US, CBC, CMP Therapeutics: None Prescription: None Impression: Left calf pain Encounter for medical screening exam Plan: 1. Please use Tylenol and/or Ibuprofen as needed for pain and fever management. 2. Get plenty of Rest. Encourage fluids to prevent dehydration. 3. Please follow up with your primary care provider/OBGYN as we discussed. Return to the ED as needed as discussed. Definitive disposition and diagnosis as appropriate pending reevaluation and review of above. LEFT LEG Pain Score (Numeric/FACES): 3 - Related Data Allergies Allergy/AdvReac Type Severity Reaction Status Date / Time Sulfa (Sulfonamide Allergy Mild Rash Verified 12/09/19 19:20 Antibiotics) Home Meds: Home Meds . 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: Musculoskeletal History: Reports: None Neurological History: Reports: None Psychiatric History: Reports: None Endocrine/Metabolic History: Reports: None Hematologic History: Reports: None Immunologic History: Reports: None Oncologic (Cancer) History: Reports: None Dermatologic History: Reports: None - Infectious Disease History Infectious Disease History: Reports: Chicken Pox - Past Surgical History Head Surgeries/Procedures: Reports: None HEENT Surgical History: Reports: Oral Surgery Other HEENT Surgeries/Procedures: wisdom teeth extraction Cardiovascular Surgical History: Reports: None Respiratory Surgical History: Reports: None GI Surgical History: Reports: None Female Surgical History: Reports: None Endocrine Surgical History: Reports: None Neurological Surgical History: Reports: None Musculoskeletal Surgical History: Reports: None Oncologic Surgical History: Reports: None Dermatological Surgical History: Reports: None Social & Family History - Family History Family Medical History: Noncontributory - Caffeine Use Caffeine Use: Reports: Tea Review of Systems - Review of Systems Review Of Systems: Comprehensive ROS is negative, except as noted in HPI. ED EXAM, GENERAL - Physical Exam Exam: See Below (See dictation) Course - Vital Signs Last Recorded V/S: Last Vital Signs Temp 97.7 F 12/09/19 18:57 Pulse 98 12/09/19 19:00 Resp 16 12/09/19 19:00 BP 117/63 12/09/19 19:00 Pulse Ox 97 12/09/19 19:00 - Orders/Labs/Meds Labs: Laboratory Tests 12/09/19 12/09/19 Range/Units 18:54 18:54 WBC 4.71 (4.0-11.0) K/uL RBC 3.63 L (4.30-5.90) M/uL Hgb 10.8 L (12.0-16.0) g/dL Hct 32.4 L (36.0-46.0) % MCV 89.3 (80.0-98.0) fL MCH 29.8 (27.0-32.0) pg MCHC 33.3 (31.0-37.0) g/dL RDW Std Deviation 44.2 (28.0-62.0) fl RDW Coeff of Kristine 14 (11.0-15.0) % Plt Count 244 (150-400) K/uL MPV 9.20 (7.40-12.00) fL Neut % (Auto) 68.2 (48.0-80.0) % Lymph % (Auto) 21.9 (16.0-40.0) % Pierce % (Auto) 7.2 (0.0-15.0) % Eos % (Auto) 2.5 (0.0-7.0) % Baso % (Auto) 0.2 (0.0-1.5) % Neut # (Auto) 3.2 (1.4-5.7) K/uL Lymph # (Auto) 1.0 (0.6-2.4) K/uL Pierce # (Auto) 0.3 (0.0-0.8) K/uL Eos # (Auto) 0.1 (0.0-0.7) K/uL Baso # (Auto) 0.0 (0.0-0.1) K/uL Nucleated RBC % 0.0 /100WBC Nucleated RBCs # 0 K/uL Sodium 141 (136-145) mmol/L Potassium 3.7 (3.5-5.1) mmol/L Chloride 108 H (98-107) mmol/L Carbon Dioxide 24.3 (21.0-32.0) mmol/L BUN 9 (7.0-18.0) mg/dL Creatinine 0.6 (0.6-1.0) mg/dL Est Cr Clr Drug Dosing 113.36 mL/min Estimated GFR (MDRD) > 60.0 ml/min Glucose 85 (74-106) mg/dL Calcium 9.4 (8.5-10.1) mg/dL Total Bilirubin 0.3 (0.2-1.0) mg/dL AST 34 (15-37) IU/L ALT 44 (14-63) IU/L Alkaline Phosphatase 80 (46-116) U/L Total Protein 6.5 (6.4-8.2) g/dL Albumin 2.6 L (3.4-5.0) g/dL Globulin 3.9 (2.6-4.0) g/dL Albumin/Globulin Ratio 0.7 L (0.9-1.6) Departure - Departure Time of Disposition: 19:32 Disposition: Home, Self-Care 01 Clinical Impression: Pain of left calf, Encounter for medical screening examination - Discharge Information Referrals: Boom Craig MD [Primary Care Provider] - Forms: ED Department Discharge Additional Instructions: The following information is given to patients seen in the emergency department who are being discharged to home. This information is to outline your options for follow-up care. We provide all patients seen in our emergency department with a follow-up referral. The need for follow-up, as well as the timing and circumstances, are variable depending upon the specifics of your emergency department visit. If you don't have a primary care physician on staff, we will provide you with a referral. We always advise you to contact your personal physician following an emergency department visit to inform them of the circumstance of the visit and for follow-up with them and/or the need for any referrals to a consulting specialist. The emergency department will also refer you to a specialist when appropriate. This referral assures that you have the opportunity for follow-up care with a specialist. All of these measure are taken in an effort to provide you with optimal care, which includes your follow-up. Under all circumstances we always encourage you to contact your private physician who remains a resource for coordinating your care. When calling for follow-up care, please make the office aware that this follow-up is from your recent emergency room visit. If for any reason you are refused follow-up, please contact the [facility] Emergency Department at and asked to speak to the emergency department charge nurse. [facility] [address] [place], [place] [id number] [place] [address] 1. Please use Tylenol and/or Ibuprofen as needed for pain and fever management. 2. Get plenty of Rest. Encourage fluids to prevent dehydration. 3. Please follow up with your primary care provider/OBGYN as we discussed. Return to the ED as needed as discussed. Sepsis Event Note - Focused Exam Vital Signs: Vital Signs Temp Pulse Resp BP Pulse Ox 12/09/19 19:00 98 16 117/63 97 12/09/19 18:57 97.7 F 94 16 117/63 98 Date Exam was Performed: 12/09/19 Time Exam was Performed: 19:31
[2019-12-09 18:58] VITALS: BP 117/63
[2019-12-09 19:21] VITALS: PULSE 98
[2019-12-09 19:29] LABS: BLOOD UREA NITROGEN,BUN 9 mg/dL (7.0-18.0); CARBON DIOXIDE,CO2 24.3 mmol/L (21.0-32.0); CHLORIDE,CL 108 mmol/L (98-107); GLUCOSE RANDOM 85 mg/dL (74-106); POTASSIUM,K 3.7 mmol/L (3.5-5.1); SODIUM,NA 141 mmol/L (136-145)
== END 2019-12-09 19:44 | disposition home or self-care (01) ==
LOC: MW.ED 17:09
DX: O90.89 Other complications of the puerperium, not elsewhere classified (principal); M79.662 Pain in left lower leg; Z88.2 Allergy status to sulfonamides
CPT/HCPCS: 36415; 80053; 85025; 93971-26-LT; 93971-LT; 99284-25

== ENCOUNTER 2021-04-20 08:07 | Day surgery (SDC) | payer BC ==
[~2021-04-20 08:07] MED LIST changes: -Citric Acid/Sodium Citrate Solution 30 ML Cup PO ONE; +Lactated Ringers 1,000 ML IV SCH; +Lidocaine 2% 5 ML SDV ONE; +Midazolam 1 MG/ML 2 ML SDV ONE; -Oxytocin/0.9 % Sodium Chloride 30 UNIT/500 ML BAG IV SCH; +Propofol 200 MG/20 ML SDV ONE; -Sodium Chloride 0.9% 10 ML SDV IV PRN; -Sodium Chloride 0.9% 10 ML Syringe FLUSH PRN; -Sodium Chloride 0.9% 2.5 ML Syringe FLUSH PRN; +fentaNYL 100 MCG/2 ML SDV ONE
--- NOTE | 2021-04-20 09:03 | PCM.PREANE ---
Preanesthetic Assessment - Anesthesia/Transfusion/Family Hx Anesthesia History: Prior Anesthesia Without Reaction Family History of Anesthesia Reaction: No Transfusion History: No Prior Transfusion(s) - Physical Assessment NPO Status Date: 04/20/21 NPO Status Time: 00:01 Vital Signs: Last Vital Signs Temp 98.8 F 04/20/21 08:15 Pulse 77 04/20/21 08:15 Resp 15 04/20/21 08:15 BP 128/83 04/20/21 08:15 Pulse Ox 98 04/20/21 08:15 Height: 5 ft 2 in Weight: 109 lb ASA Class: 2E Mental Status: Alert & Oriented x3 Airway Class: Mallampati = 2 Dentition: Reports: Normal Dentition ROM/Head Extension: Full Lungs: Normal Respiratory Effort Cardiovascular: Regular Rhythm - Lab Values: Laboratory Last Values Urine HCG, Qual NEGATIVE (NEGATIVE) 04/20/21 08:05 - Allergies Allergies/Adverse Reactions: Allergies Allergy/AdvReac Type Severity Reaction Status Date / Time Sulfa (Sulfonamide Allergy Mild Rash Verified 04/14/21 07:26 Antibiotics) - Anesthesia Plan Pre-Op Medication Ordered: None - Acknowledgements Anesthesia Type Planned: General Anesthesia Pt an Appropriate Candidate for the Planned Anesthesia: Yes Alternatives and Risks of Anesthesia Discussed w Pt/Guardian: Yes Pt/Guardian Understands and Agrees with Anesthesia Plan: Yes Additional Comments: npo MEN 1 and family hx ramón tob none etoh none always dizzy no LOC episodes of vertigo with nausea panic attacks no rx IBS par no questions PreAnesthesia Questionnaire - Past Health History Medical/Surgical History: Denies Medical/Surgical History HEENT History: Reports: None Cardiovascular History: Reports: None Respiratory History: Reports: None Gastrointestinal History: Reports: Chronic Constipation, GERD, Irritable Bowel Syndrome Genitourinary History: Reports: None 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: Musculoskeletal History: Reports: None Neurological History: Reports: None Psychiatric History: Reports: None Endocrine/Metabolic History: Reports: Hyperparathyroidism Hematologic History: Reports: None Immunologic History: Reports: None Oncologic (Cancer) History: Reports: None Dermatologic History: Reports: None - Infectious Disease History Infectious Disease History: Reports: Chicken Pox - Past Surgical History Head Surgeries/Procedures: Reports: None HEENT Surgical History: Reports: Oral Surgery Other HEENT Surgeries/Procedures: wisdom teeth extraction Cardiovascular Surgical History: Reports: None Respiratory Surgical History: Reports: None GI Surgical History: Reports: None Female Surgical History: Reports: Section Endocrine Surgical History: Reports: None Neurological Surgical History: Reports: None Musculoskeletal Surgical History: Reports: None Oncologic Surgical History: Reports: None Dermatological Surgical History: Reports: None - SUBSTANCE USE Tobacco Use Status *Q: Never Tobacco User - HOME MEDS Home Medications: Home Meds Cholecalciferol (Vitamin D3) [Vitamin D3] 1,000 units PO DAILY 03/21/21 [History] - CURRENT (IN HOUSE) MEDS Current Meds: Current Medications Lactated Ringer's (Ringers, Lactated) 1,000 mls @ 125 mls/hr IV ASDIRECTED JORGE Last Admin: 04/20/21 08:40 Dose: 125 mls/hr Documented by: Discontinued Medications Fentanyl (Fentanyl 100 Mcg/2 Ml Sdv) Confirm Administered Dose 100 mcg .ROUTE .STK-MED ONE Stop: 04/20/21 06:53 Lidocaine (Lidocaine 2% 5 Ml Sdv) Confirm Administered Dose 5 ml .ROUTE .STK-MED ONE Stop: 04/20/21 06:56 Midazolam HCl (Midazolam 1 Mg/Ml 2 Ml Sdv) Confirm Administered Dose 2 mg .ROUTE .STK-MED ONE Stop: 04/20/21 06:53 Propofol (Propofol 200 Mg/20 Ml Sdv) Confirm Administered Dose 400 mg .ROUTE .STK-MED ONE Stop: 04/20/21 06:53
--- NOTE | 2021-04-20 10:35 | PCM.OPNOTE ---
- General Post-Op/Procedure Note Date of Surgery/Procedure: 04/20/21 Operative Procedure(s): colonoscopy with biopsies. EGD with biopsies Findings: Normal EGD and Colonoscopy dictation number [id number] Pre Op Diagnosis: Blood in stool. MEN I. HIstory of constipation and loose stools. Post-Op Diagnosis: Normal colonoscopy and EGD Primary Surgeon: Scott Rudd Pathology: colonoscopy and EGD biopsies Complications: None Condition: Good
[2021-04-20 11:07] VITALS: BP 114/63; PULSE 56
--- NOTE | 2021-04-20 11:15 | PCM.POSTAN ---
POST ANESTHESIA ASSESSMENT - MENTAL STATUS Mental Status: Alert (no anesthetic problems), Oriented - VITAL SIGNS Vital Signs: Last Vital Signs Temp 97.2 F 04/20/21 11:00 Pulse 56 L 04/20/21 11:00 Resp 14 04/20/21 11:00 BP 114/63 04/20/21 11:00 Pulse Ox 100 04/20/21 11:00 - RESPIRATORY Respiratory Status: Respiratory Rate WNL, Airway Patent, O2 Saturation Stable - CARDIOVASCULAR CV Status: Pulse Rate WNL, Blood Pressure Stable - GASTROINTESTINAL GI Status: No Symptoms - POST OP HYDRATION Hydration Status: Adequate & Stable
--- NOTE | 2021-04-20 12:14 | PCM48HPAN ---
Post Anesthesia Note - EVALUATION WITHIN 48HRS OF ANESTHETIC Vital Signs in Normal Range: Yes Patient Participated in Evaluation: Yes Respiratory Function Stable: Yes Airway Patent: Yes Cardiovascular Function Stable: Yes Hydration Status Stable: Yes Pain Control Satisfactory: Yes Nausea and Vomiting Control Satisfactory: Yes Mental Status Recovered: Yes Vital Signs: Last Vital Signs Temp 97.2 F 04/20/21 11:00 Pulse 56 L 04/20/21 11:00 Resp 14 04/20/21 11:00 BP 114/63 04/20/21 11:00 Pulse Ox 100 04/20/21 11:00
--- NOTE | 2021-04-20 15:06 | OR ---
SURGEON: ANA PAULA GAMEZ MD DATE OF PROCEDURE: 04/20/2021 PREOPERATIVE DIAGNOSES: 1. Blood in the stool. 2. History of constipation and loose stools. 3. Multiple endocrine neoplasia 1. POSTOPERATIVE DIAGNOSES: 1. Normal colonoscopy. 2. Normal esophagogastroduodenoscopy. PROCEDURES PERFORMED: 1. Colonoscopy with biopsies. 2. Esophagogastroduodenoscopy with biopsies. EXTENT OF THE EGD: At least the second part of the duodenum. EXTENT OF THE COLONOSCOPY: To the cecum and terminal ileum. BOWEL PREP: Very good. There was some liquid stool in the cecum and ascending colon that was suctioned and irrigated out for good look at the mucosa. LIMITATIONS: None. REASON FOR PROCEDURE: The patient is a pleasant 25-year-old female who for the past 2 months has had blood in her stool along with some clots. She has had some lower abdominal cramping. She did have some rectal pain, but she says this has passed. When she did have the rectal pain, she does alleviate by having bowel movements. She has had issues with constipation and occasionally loose stools for most of her life. She only has a bowel movement currently about every 3 to 5 days. She denies any family history of colon cancer, but does have an uncle with Crohn disease. She denies any issues with swallowing or heartburn issues. PROCEDURE IN DETAIL: Physical examination was performed. The major risks and benefits associated with the procedure were explained to the patient in detail. The patient verbalized understanding and agreement with the same. The patient was then connected to appropriate monitoring device and IV started. EKG, pulse, pulse oximetry, blood pressure, and capnography were monitored throughout the procedure. The patient's oxygen and sedation were provided by the anesthesiologist. The patient was placed in left lateral decubitus position and sedation began. After adequate sedation was achieved, an upper endoscope was advanced under direct visualization without difficulty in the upper GI tract. The anatomy of mucosa of the esophagus, GE junction, stomach, the second part of the duodenum were inspected. Duodenum appeared fairly normal. At the first part of duodenum right past the pylorus, potentially there might be a slight blunting of the villi, so I did do biopsies of the duodenum in the first part. Scope was brought into the stomach. The patient had a fairly patent pylorus. Both retro and antegrade views of the stomach were done. No signs of gastritis were seen. Biopsies done of the antrum and pylorus areas to check for H pylori. Scope was brought to the GE junction. GE junction was approximately 37 cm from incisor. The squamocolumnar junction was intact with good Z-line. The scope was brought back into the stomach. Stomach was deinsufflated. Scope was brought up through the esophagus. Esophagus also appeared normal. Scope was completely removed, and the procedure was terminated. Gloves and scopes were changed. Rectal examination was done. No rectal masses or polyps were felt, although the patient had a fairly patent anal canal which felt slightly weaker than normal sphincter tone. Now, a well-lubricated Olympus colonoscope was entered in the rectum and advanced under direct visualization to the level of the cecum. Cecum was identified by both visual and anatomic landmarks. Photographs were taken of the cecal cap. I did do biopsies of the terminal ileum. Terminal ileum did appear normal. The patient did have some retained liquid stool mainly in the cecum and ascending colon. Some of this was a little bit mucus, but with some suction and irrigation did get overall good look at the mucosa. Because of her long history of GI complaints, I did do random biopsies throughout the colon. Scope was slowly withdrawn in somewhat circular fashion looking at the color, texture, anatomy, and integrity of the mucosa from the cecum to the anal canal. No lesions or polyps were seen. Scope was retroflexed in the rectum. Again, the patient had a fairly poor rectal tone, but no lesions or masses were seen. Scope was completely removed and the procedure was terminated. ENDOSCOPIC DIAGNOSIS: Normal colonoscopy. Normal EGD RECOMMENDATIONS: Followup colonoscopy will depend on pathology, most likely another one in 10 years, sooner if she develops signs and symptoms such as change in bowel habits or blood in her stool. The patient will follow up in the office to go over her EGD biopsies. I did go over with the patient I did not find actual cause for any bleeding. If this continues, the patient might need a capsule study to look at the small bowel. The patient does say she is following up in [place] to go over her MEN 1. BARRETT / GHANSHYAM /[id number]
== END 2021-04-20 12:15 | disposition home or self-care (01) ==
LOC: MW.SDS 08:07
PROVIDERS: ATTEND Surgery
DX: K92.1 Melena (principal); E31.21 Multiple endocrine neoplasia [MEN] type I; K59.00 Constipation, unspecified; E55.9 Vitamin D deficiency, unspecified; Z88.2 Allergy status to sulfonamides; Z79.899 Other long term (current) drug therapy
CPT/HCPCS: 43239; 45380; 81025; 88305; J2250; J2704; J3010; J7120; 00813

== ENCOUNTER 2021-06-16 19:20 | Emergency (ER) | payer BC ==
[2021-06-16 20:08] VITALS: PULSE 89
--- NOTE | 2021-06-16 20:19 | EDM.PDOC ---
ED HPI GENERAL MEDICAL PROBLEM - General Chief Complaint: ENT Problem Stated Complaint: NASAL DRIP INFECTION Time Seen by Provider: 06/16/21 20:15 Source of Information: Reports: Patient History Limitations: Reports: No Limitations - History of Present Illness INITIAL COMMENTS - FREE TEXT/NARRATIVE: HISTORY AND PHYSICAL: History of present illness: Patient is a 25 year old female who presents to the ED with complaints of nasal drainage and post nasal drip x 5 days. She states she gets this almost every summer, requiring a Zpak. She has surgery at [facility] next week and is concerned she needs to treat this before her surgery. Denies any fever, chills, change in vision, headache, syncope or near syncope. Denies any chest pain, SOB, or cough. Denies any GI or symptoms. No concern for . Has been eating and drinking well. Review of systems: As per history of present illness and below otherwise all systems reviewed and negative. Past medical history: As per history of present illness and as reviewed below otherwise noncontributory. Surgical history: As per history of present illness and as reviewed below otherwise noncontributory. Social history: See social history for further information Family history: As per history of present illness and as reviewed below otherwise noncontributory. Physical exam: General: Well developed and well nourished. Alert and orientated x 3. Nontoxic in appearance and in no acute distress. Vital signs are stable and have been reviewed by me. Nursing notes were reviewed. HEENT: Atraumatic, normocephalic, pupils equal and reactive bilaterally, negative for conjunctival pallor or scleral icterus, mucous membranes moist, TMs normal bilaterally, throat clear, cobbl[place]ning noted, sinus tenderness to maxillary area, neck supple, nontender, trachea midline. No drooling or trismus noted. No meningeal signs. No hot potato voice noted. Lungs: Clear to auscultation bilaterally. No wheezes, rales, or rhonchi. Chest nontender. Normal work of breathing, no accessory muscles used. Heart: S1S2, regular rate and rhythm without overt murmur, gallops, or rubs. No JVD. No peripheral edema Abdomen: Soft, nondistended, nontender. Normoactive bowel sounds. Negative for masses or costovertebral tenderness. Pelvis: Stable nontender. Genitourinary/Rectal: Deferred. Skin: Intact, warm, dry. No lesions or rashes noted. Hematologic: No petechiae or purpra. Mucosa appropriate color and normal nail bed color and refill. Extremities: Atraumatic, moves all extremities per self without difficulty or deficits, negative for cords or calf pain. Neurovascular unremarkable. Neuro: Awake, alert, oriented. Cranial nerves II through XII unremarkable. Cerebellum unremarkable. Motor and sensory unremarkable throughout. Exam nonfocal. Psychiatric: Mood and affect are appropriate. Normal thought process. Answering questions appropriately. Notes: *This patient was seen and evaluated during the 2019 SARS-CoV-2 novel lashawn navirus pandemic period. Community viral transmission is ongoing at time of this encounter and the emergency department is operating under pandemic response procedures. I have talked with the patient about today's findings, in addition to providing specific details for plan of care. Reassessment at the time of disposition demonstrates that the patient is in no acute distress. The patient is stable for discharge, counseling was provided and we discussed in great detail signs and symptoms that would prompt them to return to the Emergency Department. Medication, follow up and supportive care measures were reviewed and discussed. Voices understanding and is agreeable to plan of care. Denies any further questions or concerns at this time. Diagnostics: None Therapeutics: None Prescription: Zpak Impression: Postnasal drip Plan: 1. You were evaluated today on an emergent basis. Your physical exam is normal, will treat you with a Zpack (antibiotic) for your sinusitis 2. You can alternate Tylenol and ibuprofen as needed for pain and fever management. 3. We encourage you to follow up with your primary care provider and/or recommended specialist in the next few days for re-evaluation and further care/management. 4. If your symptoms should worsen, new symptoms develop or any of the signs and symptoms we discussed should arise please return to the emergency room or call 911 (if needed). Definitive disposition and diagnosis as appropriate pending reevaluation and review of above. - Related Data Allergies Allergy/AdvReac Type Severity Reaction Status Date / Time Sulfa (Sulfonamide Allergy Mild Rash Verified 06/16/21 19:58 Antibiotics) Home Meds: Home Meds Cholecalciferol (Vitamin D3) [Vitamin D3] 1,000 units PO DAILY 03/21/21 [History] Ascorbic Acid [Vitamin C] 1 dose PO ASDIRECTED 06/16/21 [History] Ondansetron [Zofran ODT] 4 mg PO Q6H PRN #8 tab.dis 06/16/21 [Rx] Past Medical History - Past Health History Medical/Surgical History: Denies Medical/Surgical History HEENT History: Reports: None Cardiovascular History: Reports: None Respiratory History: Reports: None Gastrointestinal History: Reports: Chronic Constipation, GERD, Irritable Bowel Syndrome Genitourinary History: Reports: None TESTING AND REGULATING CHIEF History: Reports: Musculoskeletal History: Reports: None Neurological History: Reports: None Psychiatric History: Reports: None Endocrine/Metabolic History: Reports: Hyperparathyroidism, Other (See Below) 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 Hematologic History: Reports: None Immunologic History: Reports: None Oncologic (Cancer) History: Reports: None Dermatologic History: Reports: None - Infectious Disease History Infectious Disease History: Reports: Chicken Pox - Past Surgical History Head Surgeries/Procedures: Reports: None HEENT Surgical History: Reports: Oral Surgery Other HEENT Surgeries/Procedures: wisdom teeth extraction Cardiovascular Surgical History: Reports: None Respiratory Surgical History: Reports: None GI Surgical History: Reports: Colonoscopy, EGD Female Surgical History: Reports: Section Endocrine Surgical History: Reports: None Neurological Surgical History: Reports: None Musculoskeletal Surgical History: Reports: None Oncologic Surgical History: Reports: None Dermatological Surgical History: Reports: None Social & Family History - Family History Family Medical History: No Pertinent Family History - Tobacco Use Tobacco Use Status *Q: Never Tobacco User - Caffeine Use Caffeine Use: Reports: Tea - Recreational Drug Use Recreational Drug Use: No ED ROS ENT - Review of Systems Review Of Systems: Comprehensive ROS is negative, except as noted in HPI. ED EXAM, ENT - Physical Exam Exam: See Below (See dictation) Course - Vital Signs Last Recorded V/S: Last Vital Signs Temp 97.4 F 06/16/21 19:59 Pulse 89 06/16/21 19:59 Resp 16 06/16/21 19:59 BP 124/91 H 06/16/21 19:59 Pulse Ox 99 06/16/21 19:59 Departure - Departure Time of Disposition: 20:25 Disposition: Home, Self-Care 01 Clinical Impression: Post-nasal drip - Discharge Information Prescriptions: Ondansetron [Zofran ODT] 4 mg PO Q6H PRN #8 tab.dis PRN Reason: Nausea Instructions: Postnasal Drip Referrals: Boom Carig MD [Primary Care Provider] - Forms: ED Department Discharge Additional Instructions: The following information is given to patients seen in the emergency department who are being discharged to home. This information is to outline your options for follow-up care. We provide all patients seen in our emergency department with a follow-up referral. The need for follow-up, as well as the timing and circumstances, are variable depending upon the specifics of your emergency department visit. If you don't have a primary care physician on staff, we will provide you with a referral. We always advise you to contact your personal physician following an emergency department visit to inform them of the circumstance of the visit and for follow-up with them and/or the need for any referrals to a consulting specialist. The emergency department will also refer you to a specialist when appropriate. This referral assures that you have the opportunity for follow-up care with a specialist. All of these measure are taken in an effort to provide you with optimal care, which includes your follow-up. Under all circumstances we always encourage you to contact your private physician who remains a resource for coordinating your care. When calling for follow-up care, please make the office aware that this follow-up is from your recent emergency room visit. If for any reason you are refused follow-up, please contact the [facility] Department at and asked to speak to the emergency department charge nurse. [facility] [address] [place] [id number] [address] Thank you for choosing the [facility] emergency department in [place] for your medical needs today. It was a pleasure caring for you. Today you were seen in the emergency department for nasal drip 1. You were evaluated today on an emergent basis. Your physical exam is normal, will treat you with a Zpack (antibiotic) for your sinusitis. Warm salt water gargle rinse and spit. Saline nasal spray may help. Over-the counter antihistamines (Benadryl) and or Mucinex. 2. You can alternate Tylenol and ibuprofen as needed for pain and fever management. 3. We encourage you to follow up with your primary care provider and/or recommended specialist in the next few days for re-evaluation and further care/management. 4. If your symptoms should worsen, new symptoms develop or any of the signs and symptoms we discussed should arise please return to the emergency room or call 911 (if needed). Sepsis Event Note (ED) - Evaluation Sepsis Screening Result: No Definite Risk - Focused Exam Vital Signs: Vital Signs Temp Pulse Resp BP Pulse Ox 06/16/21 19:59 97.4 F 89 16 124/91 H 99
[2021-06-16 20:30] VITALS: BP 117/81
== END 2021-06-16 20:22 | disposition home or self-care (01) ==
LOC: MW.ED 19:20
DX: R09.82 Postnasal drip (principal); Z88.2 Allergy status to sulfonamides
CPT/HCPCS: 99283

== ENCOUNTER 2022-02-25 08:43 | Emergency (ER) | payer BC ==
[2022-02-25 10:11] VITALS: BP 114/74; PULSE 81
== END 2022-02-25 10:07 | disposition home or self-care (01) ==
LOC: MW.ED 08:43
DX: J34.89 Other specified disorders of nose and nasal sinuses (principal); F41.9 Anxiety disorder, unspecified; Z88.2 Allergy status to sulfonamides
CPT/HCPCS: 99282; 99283

== ENCOUNTER 2024-04-24 22:07 | Emergency (ER) | payer BC ==
[2024-04-24 22:30] LABS: APPEARANCE,URINE CLEAR; BILIRUBIN,URINE NEGATIVE (NEGATIVE); COLOR,URINE YELLOW; GLUCOSE,URINE NEGATIVE (NEGATIVE); KETONES,URINE NEGATIVE (NEGATIVE); LEUKOCYTE ESTERASE,URINE NEGATIVE (NEGATIVE); NITRITE,URINE NEGATIVE (NEGATIVE); OCCULT BLOOD,URINE TRACE-INTACT (NEGATIVE); PROTEIN,URINE NEGATIVE (NEGATIVE); UROBILINOGEN,URINE 0.2 EU/dL (<2.0)
[2024-04-24 23:01] LABS: BACTERIA,URINE FEW (NEGATIVE); EPITHELIAL CELLS,URINE FEW (NONE-FEW); RBC,URINE 0-2 (0-2/HPF); WBC,URINE 0-1 (0-5/HPF)
[2024-04-24] MEDS ORDERED: Iopamidol 755 MG/ML 500 ML Multipack Bottle IVPUSH STA (23:18)
[2024-04-24] MEDS: Ketorolac 30 MG/ML SDV IVPUSH ONE (23:25)
[2024-04-24] MEDS: Sodium Chloride 0.9% 2.5 ML Syringe FLUSH PRN (23:25)
[2024-04-24] MEDS: Sodium Chloride 0.9% 1,000 ML IV ONE (23:25)
[2024-04-24] MEDS: Ondansetron 4 MG/2 ML SDV IVPUSH ONE (23:25)
[2024-04-24] MEDS: Sodium Chloride 0.9% 10 ML Syringe FLUSH PRN (23:25)
[2024-04-24 23:31] LABS: BASOPHILS ABSOLUTE AUTO 0.03 K/uL (0.00-0.20); BASOPHILS PERCENT AUTO 0.3 % (0.0-1.0); EOSINOPHILS ABSOLUTE AUTO 0.14 K/uL (0.00-0.45); EOSINOPHILS PERCENT AUTO 1.6 % (0.0-6.0); HEMATOCRIT 42.1 % (37.0-47.0); HEMOGLOBIN 14.3 g/dL (12.0-16.0); IMMATURE GRAN ABSOLUTE AUTO 0.01 K/uL (0.00-0.05); IMMATURE GRAN PERCENT AUTO 0.1 % (0.0-0.4); LYMPHOCYTES ABSOLUTE AUTO 0.89 K/uL (1.00-4.80); LYMPHOCYTES PERCENT AUTO 10.1 % (24.0-44.0); MEAN CORPUSCULAR HEMOGLOBIN 30.8 pg (28.0-32.0); MEAN CORPUSCULAR VOLUME 90.7 fL (83.0-99.0); MEAN PLATELET VOLUME 9.3 fL (9.4-12.3); MONOCYTES ABSOLUTE AUTO 0.45 K/uL (0.00-0.80); MONOCYTES PERCENT AUTO 5.1 % (0.0-8.0); NEUTROPHILS PERCENT AUTO 82.8 % (41.0-71.0); PLATELET COUNT,PLT 246 K/uL (150-400); RED BLOOD CELL COUNT 4.64 M/uL (4.10-5.30); WHITE BLOOD CELL COUNT,WBC 8.82 K/uL (3.9-11.3)
[2024-04-24] MEDS: Midazolam 5 MG/ML SDV IVPUSH ONE (23:34)
[2024-04-25 00:17] LABS: A/G RATIO 0.8 (0.9-1.6); ALBUMIN 3.6 g/dL (3.4-5.0); BILIRUBIN TOTAL 0.3 mg/dL (0.2-1.0); CALCIUM 8.7 mg/dL (8.5-10.1); CARBON DIOXIDE,CO2 24.4 mmol/L (21.0-32.0); CREATININE 0.9 mg/dL (0.6-1.0); EST CRCL DRUG DOSING (CG) 72.95 mL/min; POTASSIUM,K 4.2 mmol/L (3.5-5.1); PROTEIN TOTAL,TP 7.9 g/dL (6.4-8.2)
[2024-04-25] MEDS: Iopamidol 755 MG/ML 500 ML Multipack Bottle IVPUSH STA (01:33)
[2024-04-25 02:22] VITALS: BP 104/56; PULSE 82
== END 2024-04-25 02:22 | disposition home or self-care (01) ==
LOC: MW.ED 22:07
DX: R19.7 Diarrhea, unspecified (principal); R10.30 Lower abdominal pain, unspecified; Z88.2 Allergy status to sulfonamides; Z79.899 Other long term (current) drug therapy; Z75.8 Other problems related to medical facilities and other health care
CPT/HCPCS: 36415; 74177; 80053; 81001; 81025; 83690; 85025; 96361; 96374; 96375; 99284; J1885; J2405; J3490; J7030; Q9967